=== PATIENT | male | born 1950 | race Caucasian/White ===

== ENCOUNTER 2017-08-09 05:50 | Day surgery (SDC) | payer MEDICARE, OTHER ==
[~2017-08-09] VITALS: Ht 182.9 cm; Wt 106.1 kg
[~2017-08-09 05:50] MED LIST: ALPRAZOLAM0.5 MG PO; BAYER CHEWABLE81 MG PO; CARVEDILOL25 MG PO; ENTRESTO 97 MG1 EACH PO; FEXOFENADINE H180 MG PO; FLOMAX0.4 MG PO; FLONASE ALLERG9.9 ML NAS; FUROSEMIDE20 MG PO; LIPITOR80 MG PO; PERCOCET 5-3251 EACH PO; PRAVACHOL20 MG PO; PYRIDIUM200 MG PO; SOTALOL80 M1 PO; SPIRONOLACTONE25 MG PO; WELCHOL625 MG PO; XARELTO20 MG PO
[2017-08-09] MEDS ORDERED: ALLEGRA ALLERG180 MG PO (06:11)
--- NOTE | 2017-08-09 08:19 | NUR ---
08/09/17 0819 Hermila Mejia 0810 PT ARRIVED DROWSY, RESP EVEN AND UNLABORED, ON 6L VIA MASK. PT HARD OF HEARING BUT REPONDING TO COMMANDS. ICE PLACED ON EXCISION SITE 0819 PT WAKES TO STIMULI AND DENIES PAIN. REORIENTED TO PACU. PT BACK TO SLEEP.
--- NOTE | 2017-08-09 12:27 | OR ---
[facility] [address], [place] [address] Signed DATE OF OPERATION: 08/09/2017 SURGEON: Dario Castro MD PREOPERATIVE DIAGNOSIS: Posterior cervical midline cyst. POSTOPERATIVE DIAGNOSIS: Posterior cervical midline cyst. PROCEDURE: Excision of cervical cyst. ESTIMATED BLOOD LOSS: None. INDICATIONS: John is a 66-year-old gentleman I have known in my office previously. He came to the office with an enlarging cyst in the posterior midline of his neck. He said it has been there for several weeks. They have tried everything to get rid of it without success including hot packs and putting pressure on the area. He said it is painful and it is up to a size about 2 cm. He is very convinced that it is giving headaches and bothering his right shoulder. Consequently, his primary care provider asked him to come see me as a general surgeon. In the office, I met with John and his . I explained to them that these are notoriously inflamed, indurated, and extremely difficult to remove. They often bleed significantly. He also needs aspirin and Xarelto, which would have to hold for the surgery. As a result, I explained to John and his we would do this over at the hospital under monitored anesthesia care with local anesthetic and we used our electrocautery to remove it in expeditious fashion. There is always a risk to the surgery including, but not limited to bleeding, infection, scarring, change in contour of the skin as well as recurrent cyst in the same or other locations. He had expressed understanding and wished to proceed. PROCEDURE NOTE: I met with John and his in our preop area. Thankfully, the cyst is actually decreased in size currently. John and I identified it easily and marked that appropriately. After this, John was taken to the operating room and placed in the left lateral decubitus position. He was given preoperative antibiotics along with subcutaneous heparin. SCDs were utilized. He was placed under monitored anesthesia care and he was then prepped and draped in the usual sterile fashion. After this, we Electronically Signed By: DARIO CASTRO MD 08/09/17 1227 PATIENT NAME: JOHN VARELA OPERATIVE REPORT DATE OF : 46 REPORT #: [id number] PHYSICIAN: DARIO CASTRO MD PCP: ALEK DAVE MD REPORT IS CONFIDENTIAL AND NOT TO BE RELEASED WITHOUT AUTHORIZATION [facility] [address], [place] [address] Signed injected local anesthetic in and around the lesion with the first pass of the needle. The tissue was so indurated and firm that it bent the 21-gauge needle. It took a few minutes and several pokes through the skin in order to get the area anesthetized with local anesthetic. After this, we used a transverse elliptical incision with a 15-blade knife and even then I had trouble cutting down through the skin. We switched over to cautery and even with the cutting mode, it took me a few minutes to get through that thick indurated tissue out on the edge where the subcutaneous adipose tissue was much softer. In this way, we were able to excise the entire cyst and cyst wall. It was passed off the field. The wound was then irrigated and suctioned out until clear. The dermis was reapproximated with interrupted 3-0 subcuticular Monocryl sutures. The skin edges were reapproximated with a running 6-0 fast absorbing plain gut suture. Dry gauze and tape were then applied. John was then rotated into the supine position on his hospital bed and taken into recovery room in stable condition. John will resume his chronic medications today including his aspirin and the Xarelto. Dario Castro MD ALB/MODL /[id number] cc: MD Dario Saldivar MD Copies: ALEK DAVE MD, ANDREW L MD ~ Electronically Signed By: DARIO CASTRO MD 08/09/17 1227 PATIENT NAME: JOHN VARELA OPERATIVE REPORT DATE OF : 46 REPORT #: [id number] PHYSICIAN: DARIO CASTRO MD PCP: ALEK DAVE MD REPORT IS CONFIDENTIAL AND NOT TO BE RELEASED WITHOUT AUTHORIZATION
--- NOTE | 2017-08-09 14:26 | NUR ---
PT ALERT, ORIENTED AND SUPPORTED BY HIS ULISES. BOTH EXPRESSED CONFIDENCE IN CARE THEY ARE RECEIVING AT [facility]. DR CASTRO IN, STAFF ALSO CAME TO TAKE PT TO SURGERY. PRAYED WITH ULISES, WILL FOLLOW NEEDED
== END 2017-08-09 09:11 | disposition home or self-care (01) ==
LOC: DS 05:50
PROVIDERS: Colon & Rectal Surgery
PROC: 0HB4XZZ Excision of Neck Skin, External Approach (ICD-10-PCS; principal; 2017-08-09 06:45)
DX: L72.0 Epidermal cyst (principal); I25.10 Atherosclerotic heart disease of native coronary artery without angina pectoris; E55.9 Vitamin D deficiency, unspecified; E66.9 Obesity, unspecified; G47.33 Obstructive sleep apnea (adult) (pediatric); E03.9 Hypothyroidism, unspecified; F41.0 Panic disorder [episodic paroxysmal anxiety]; Z95.810 Presence of automatic (implantable) cardiac defibrillator; Z79.01 Long term (current) use of anticoagulants; Z79.899 Other long term (current) drug therapy; Z79.82 Long term (current) use of aspirin; Z98.61 Coronary angioplasty status; Z68.31 Body mass index [BMI] 31.0-31.9, adult
CPT/HCPCS: 00300; 88304; J0690; J1644; J2250; J2704; J7120

== ENCOUNTER 2022-06-05 11:50 | Emergency (ER) | payer MEDICARE, OTHER ==
[~2022-06-05] VITALS: Ht 182.9 cm; Wt 106.1 kg
--- NOTE | ~2022-06-05 | EKG ---
[facility] [address] [facility] [place], [place] [address] Draft EK completed, results pending confirmation PATIENT NAME: NICHOLEJOHN Electrocardiogram DATE OF : 46 PHYSICIAN: PRELIMINARY REPORT #: [id number] REPORT IS CONFIDENTIAL AND NOT TO BE RELEASED WITHOUT AUTHORIZATION
[~2022-06-05 11:50] MED LIST changes: +ALLEGRA ALLERG180 MG PO
[2022-06-05] MEDS ORDERED: HYDROCODON-ACE1 EA10 PO (17:45)
== END 2022-06-05 18:11 | disposition home or self-care (01) ==
LOC: ED 11:50
DX: K80.20 Calculus of gallbladder without cholecystitis without obstruction (principal); I10 Essential (primary) hypertension; I25.2 Old myocardial infarction; I25.10 Atherosclerotic heart disease of native coronary artery without angina pectoris; Z95.0 Presence of cardiac pacemaker; Z79.01 Long term (current) use of anticoagulants; Z79.899 Other long term (current) drug therapy; Z79.82 Long term (current) use of aspirin
CPT/HCPCS: 36415; 74177; 76705; 80053; 83690; 84484; 85025; 93005; 93010; 96374; 96375; 99285-25; J1170; J2405; Q9967; U0003

== ENCOUNTER 2025-01-26 15:03 | Emergency (ER) | payer MEDICARE, OTHER ==
[~2025-01-26] VITALS: Ht 182.9 cm; Wt 93.0 kg
--- OUTSIDE RECORDS SUMMARY | ~2025-01-26 | XMS | Continuity of Care Document ---
Demographics + + + | Address | [address] | | | [place] [address] | + + + | Preferred Language | Unknown | + + + | Marital Status | Unknown | + + + | Mormonism Affiliation | Unknown | + + + | Race | or | + + + | Ethnic Group | Unknown | + + + Author + + + | Author | [facility] | + + + | Organization | [facility] | + + + | Address | [address] [facility] [address] [facility] | | | [place] [address] | + + + | Phone | | + + + Care Team Providers + + + + | Care Room Attendant Name | Role | Phone | + [...] + + | STAIN | 2024-12-22 | [place] | (missing) | (missing) | 12/23/2024 | | RESULT.XXX.N | 05:07 | [facility] | | | 02:17 AM BY | | OM | | Medical | | | [facility] | | | | Center | | | | + + + + + + + | Tobramycin | 2024-12-22 | [facility] | (missing) | (missing) | 12/23/2024 | | | 05:07 | [facility] | | | 02:17 AM BY | | | | Medical | | | [facility] | | | | Center | | | | + + + + + + + | STAIN | 2024-12-22 | [facility] | (missing) | (missing) | Critical | | RESULT.XXX.N | 05:07 | [facility] | | | result was | | OM | | Medical | | | given to: | | | | Center | | | | + + + + + + + | Tobramycin | 2024-12-22 | [facility] | (missing) | (missing) | Critical | | | 05:07 | [facility] | | | result was | | | | Medical | | | given to: | | | | Center | | | | + + + + + + + | STAIN | 2024-12-22 | [facility] | (missing) | (missing) | Date/Time : | | RESULT.XXX.N | 05:07 | [facility] | | | | | OM | | Medical | | | | | | | Center | | | | + + + + + + + | Tobramycin | 2024-12-22 | [place] | (missing) | (missing) | Date/Time : | | | 05:07 | [facility] | | | | | | | Medical | | | | | | | Center | | | | + + + + + + + | STAIN | 2024-12-22 | [facility] | (missing) | (missing) | Result was | | RESULT.XXX.N | 05:07 | [facility] | | | read back. | | OM | | Medical | | | | | | | Center | | | | + + + + + + + | Tobramycin | 2024-12-22 | [facility] | (missing) | (missing) | Result was | | | 05:07 | [facility] | | | read back. | | | | Medical | | | | | | | Center | | | | + + + + + + + | STAIN | 2024-12-22 | [facility] | (missing) | (missing) | MYRNA B. | | RESULT.XXX.N | 05:07 | [facility] | | | at: [facility] | | OM | | Medical | | | | | | | Center | | | | + + + + + + + | Tobramycin | 2024-12-22 | [facility] | (missing) | (missing) | MYRNA B. | | | 05:07 | [facility] | | | at: [facility] | | | | Medical | | | | | | | Center | | | | + + + + + + + | Tobramycin | 2024-12-22 | [place] | <=1 | (missing) | (missing) | | | 05:07 | [facility] | | | | | | | Medical | | | | | | | Center | | | | + + + + + + + | | 2024-12-22 | [facility] | 0.0 | per 100 | (missing) | | NRBC.BLD.QN. | 05:07 | [facility] | | [facility] | | | AUTO (K/UL) | | Medical | | | | | | | Center | | | | + + + + + + + | | 2024-12-22 | [facility] | 0.00 | k/ul | (missing) | | NRBC.BLD.QN. | 05:07 | [facility] | | | | | AUTO (K/UL) | | Medical | | | | | | | Center | | | | + + + + + + + | | 2024-12-22 | [facility] | 0.01 | k/ul | (missing) | | NRBC.BLD.QN. | 05:07 | [facility] | | | | | AUTO (K/UL) | | Medical | | | | | | | Center | | | | + + + + + + + | | 2024-12-22 | [facility] | 0.03 | k/ul | (missing) | | NRBC.BLD.QN. | 05:07 | [facility] | | | | | AUTO (K/UL) | | Medical | | | | | | | Center | | | | + + + + + + + | | 2024-12-22 | [facility] | 0.07 | k/ul | (missing) | | NRBC.BLD.QN. | 05:07 | [facility] | | | | | AUTO (K/UL) | | Medical | | | | | | | Center | | | | + + + + + + + | | 2024-12-22 | [facility] | 0.09 | k/ul | (missing) | | NRBC.BLD.QN. | 05:07 | [facility] | | | | | AUTO (K/UL) | | Medical | | | | | | | Center | | | | + + + + + + + | | 2024-12-22 | [place] | 0.1 | % | (missing) | | NRBC.BLD.QN. | 05:07 | [facility] | | | | | AUTO (K/UL) | | Medical | | | | | | | Center | | | | + + + + + + + | | 2024-12-22 | [facility] | 0.16 | k/ul | (missing) | | NRBC.BLD.QN. | 05:07 | [facility] | | | | | AUTO (K/UL) | | Medical | | | | | | | Center | | | | + + + + + + + | Tobramycin | 2024-12-22 | [facility] | 0.25 | (missing) | (missing) | | | 05:07 | [facility] | | | | | | | Medical | | | | | | | Center | | | | + + + + + + + | | 2024-12-22 | [facility] | 0.3 | % | (missing) | | NRBC.BLD.QN. | 05:07 | [facility] | | | | | AUTO (K/UL) | | Medical | | | | | | | Center | | | | + + + + + + + | | 2024-12-22 | [place] | 0.6 | % | (missing) | | NRBC.BLD.QN. | 05:07 | [facility] | | | | | AUTO (K/UL) | | Medical | | | | | | | Center | | | | + + + + + + + | | 2024-12-22 | [facility] | 0.8 | % | (missing) | | NRBC.BLD.QN. | 05:07 | [facility] | | | | | AUTO (K/UL) | | Medical | | | | | | | Center | | | | + + + + + + + | Tobramycin | 2024-12-22 | [facility] | 1.0 | (missing) | (missing) | | | 05:07 | [facility] | | | | | | | Medical | | | | | | | Center | | | | + + + + + + + | EGFR | 2024-12-22 | [facility] | 1.04 | mg/dl | (missing) | | ML/MIN/1.73 | 05:07 | [facility] | | | | | SQ | | Medical | | | | | M.PREDICTED | | Center | | | | + + + + + + + | EGFR | 2024-12-22 | [facility] | 1.3 | (missing) | (missing) | | ML/MIN/1.73 | 05:07 | [facility] | | | | | SQ | | Medical | | | | | M.PREDICTED | | Center | | | | + + + + + + + | | 2024-12-22 | [facility] | 1.4 | % | (missing) | | NRBC.BLD.QN. | 05:07 | [facility] | | | | | AUTO (K/UL) | | Medical | | | | | | | Center | | | | + + + + + + + | EGFR | 2024-12-22 | [facility] | 1.8 | mg/dl | (missing) | | ML/MIN/1.73 | 05:07 | [facility] | | | | | SQ | | Medical | | | | | M.PREDICTED | | Center | | | | + + + + + + + | EGFR | 2024-12-22 | [place] | 102 | mmol/l | (missing) | | ML/MIN/1.73 | 05:07 | [facility] | | | | | SQ | | Medical | | | | | M.PREDICTED | | Center | | | | + + + + + + + | | 2024-12-22 | [facility] | 11.02 | k/ul | (missing) | | NRBC.BLD.QN. | 05:07 | [facility] | | | | | AUTO (K/UL) | | Medical | | | | | | | Center | | | | + + + + + + + | | 2024-12-22 | [facility] | 11.38 | k/ul | (missing) | | NRBC.BLD.QN. | 05:07 | [facility] | | | | | AUTO (K/UL) | | Medical | | | | | | | Center | | | | + + + + + + + | EGFR | 2024-12-22 | [place] | 12.5 | (missing) | (missing) | | ML/MIN/1 | 05:07 | [facility] | | | | | SQ | | Medical | | | | | M.PREDICTED | | Center | | | | + + + + + + + | | 2024-12-22 | [place] | 12.8 | g/dl | (missing) | | NRBC.BLD.QN. | 05:07 | [facility] | | | | | AUTO (K/UL) | | Medical | | | | | | | Center | | | | + + + + + + + | EGFR | 2024-12-22 | [facility] | 121 | mg/dl | Diagnostic | | ML/MIN/1.73 | 05:07 | [facility] | | | Categories | | SQ [...] + + | EGFR | 2024-12-22 | [place] | 13 | mg/dl | (missing) | | ML/MIN/1.73 | 05:07 | [facility] | | | | | SQ | | Medical | | | | | M.PREDICTED | | Center | | | | + + + + + + + | EGFR | 2024-12-22 | [place] | 13 | mmol/l | (missing) | | ML/MIN/173 | 05:07 | [facility] | | | | | SQ | | Medical | | | | | M.PREDICTED | | Center | | | | + + + + + + + | | 2024-12-22 | [place] | 13.2 | % | (missing) | | NRBC.BLD.QN. | 05:07 | [facility] | | | | | AUTO (K/UL) | | Medical | | | | | | | Center | | | | + + + + + + + | EGFR | 2024-12-22 | [place] | 137 | mmol/l | (missing) | | ML/MIN/1.73 | 05:07 | [facility] | | | | | SQ | | Medical | | | | | M.PREDICTED | | Center | | | | + + + + + + + | EGFR | 2024-12-22 | [facility] | 149 | u/l | (missing) | | ML/MIN/1.73 | 05:07 | [facility] | | | | | SQ | | Medical | | | | | M.PREDICTED | | Center | | | | + + + + + + + | Tobramycin | 2024-12-22 | [facility] | 16 | (missing) | (missing) | | | 05:07 | [facility] | | | | | | | Medical | | | | | | | Center | | | | + + + + + + + | Tobramycin | 2024-12-22 | [place] | 2.0 | (missing) | (missing) | | | 05:07 | [facility] | | | | | | | Medical | | | | | | | Center | | | | + + + + + + + | EGFR | 2024-12-22 | [facility] | 22 | mmol/l | (missing) | | ML/MIN/1.73 | 05:07 | [facility] | | | | | SQ | | Medical | | | | | M.PREDICTED | | Center | | | | + + + + + + + | EGFR | 2024-12-22 | [place] | 23 | u/l | (missing) | | ML/MIN/1.73 | 05:07 | [facility] | | | | | SQ | | Medical | | | | | M.PREDICTED | | Center | | | | + + + + + + + | | 2024-12-22 | [place] | 241 | k/ul | (missing) | | NRBC.BLD.QN. | 05:07 | [facility] | | | | | AUTO (K/UL) | | Medical | | | | | | | Center | | | | + + + + + + + | EGFR | 2024-12-22 | [place] | 25 | u/l | (missing) | | ML/MIN/1.73 | 05:07 | [facility] | | | | | SQ | | Medical | | | | | M.PREDICTED | | Center | | | | + + + + + + + | | 2024-12-22 | [place] | 29.1 | pg | (missing) | | NRBC.BLD.QN. | 05:07 | [facility] | | | | | AUTO (K/UL) | | Medical | | | | | | | Center | | | | + + + + + + + | | 2024-12-22 | [place] | 3.0 | mmol/l | (missing) | | LACTATE.BLD. | 05:07 | [facility] | | | | | QN | | Medical | | | | | | | Center | | | | + + + + + + + | EGFR | 2024-12-22 | [place] | 3.0 | mmol/l | (missing) | | ML/MIN/1.73 | 05:07 | [facility] | | | | | SQ | | Medical | | | | | M.PREDICTED | | Center | | | | + + + + + + + | EGFR | 2024-12-22 | [place] | 3.1 | g/dl | (missing) | | ML/MIN/1.73 | 05:07 | [facility] | | | | | SQ | | Medical | | | | | M.PREDICTED | | Center | | | | + + + + + + + | EGFR | 2024-12-22 | [place] | 3.9 | g/dl | (missing) | | ML/MIN/173 | 05:07 | [facility] | | | | | SQ | | Medical | | | | | M.PREDICTED | | Center | | | | + + + + + + + | | 2024-12-22 | [place] | 33.3 | g/dl | (missing) | | NRBC.BLD.QN. | 05:07 | [facility] | | | | | AUTO (K/UL) | | Medical | | | | | | | Center | | | | + + + + + + + | STAIN | 2024-12-22 | [place] | | (missing) | Pseudomonas | | RESULT.XXX.N | 05:07 | [facility] | [address] | | aeruginosa | | OM | | Medical | | | Pseudomonas | | | | Center | [facility] | | aeruginosa | + + + + + + + | Tobramycin | 2024-12-22 | [place] | | (missing) | Pseudomonas | | | 05:07 | [facility] | [address] | | aeruginosa | | | | Medical | | | Pseudomonas | | | | Center | [facility] | | aeruginosa | + + + + + + + | STAIN | 2024-12-22 | [place] | | (missing) | Pseudomonas | | RESULT.XXX.N | 05:07 | [facility] | [address] | | aeruginosaPr | | [...] + + | STAIN | 2024-12-22 | [place] | | (missing) | Pseudomonas | | RESULT.XXX.N | 05:07 | [facility] | [address] | | aeruginosaRe | | OM | | Medical | | | francisca to | | | | Center | [facility] | | accession # | | | | | | | [id number] | | | | | | | [...] + + | STAIN | 2024-12-22 | [place] | | (missing) | Pseudomonas | | RESULT.XXX.N | 05:07 | [facility] | [address] | | | | OM | | Medical | | | aeruginosaSu | | | | Center | [facility] | | sceptibility | | | | | | | to follow. | | | | | | | Pseudomonas | | | | | | | aeruginosa | + + + + + + + | Tobramycin | 2024-12-22 | [place] | | (missing) | Pseudomonas | | | 05:07 | [facility] | [address] | | | | | | Medical | | | aeruginosaSu | | | | Center | [facility] | | sceptibility | | | | | | | to follow. | | | | | | | Pseudomonas | | | | | | | aeruginosa | + + + + + + + | | 2024-12-22 | [place] | 38.4 | % | (missing) | | YOSHI.DEWAYNE.QN. | 05:07 | [facility] | | | | | AUTO (K/UL) | | Medical | | | | | | | Center | | | | + + + + + + + | | 2024-12-22 | [place] | 4.40 | m/ul | (missing) | | NRBC.BLD.QN. | 05:07 | [facility] | | | | | AUTO (K/UL) | | Medical | | | | | | | Center | | | | + + + + + + + | | 2024-12-22 | [place] | 41.5 | fl | (missing) | | NRBC.BLD.QN. | 05:07 | [facility] | | | | | AUTO (K/UL) | | Medical | | | | | | | Center | | | | + + + + + + + | EGFR | 2024-12-22 | [place] | 7.0 | g/dl | (missing) | | ML/MIN/1.73 | 05:07 | [facility] | | | | | SQ | | Medical | | | | | M.PREDICTED | | Center | | | | + + + + + + + | EGFR | 2024-12-22 | [place] | 74 | | GFR value | | ML/MIN/1.73 | 05:07 | [facility] | | ml/min/1.73m | was | | [...] | | | | | | | [place] | | | | | | | [...] + + + | | 2024-12-22 | [place] | 87.3 | fl | (missing) | | NRBC.BLD.QN. | 05:07 | [facility] | | | | | AUTO (K/UL) | | Medical | | | | | | | Center | | | | + + + + + + + | STAIN | 2024-12-22 | [place] | 881GRAM | (missing) | Gram | | RESULT.XXX.N | 05:07 | [facility] | NEGATIVE | | negative | | OM | | Medical | BACILLI | | bacilli Gram | | | | Center | | | Negative | | | | | | | Rods | + + + + + + + | | 2024-12-22 | [place] | 9.5 | fl | (missing) | | NRBC.BLD.QN. | 05:07 | [facility] | | | | | AUTO (K/UL) | | Medical | | | | | | | Center | | | | + + + + + + + | EGFR | 2024-12-22 | [place] | 9.5 | mg/dl | (missing) | | ML/MIN/1.73 | 05:07 | [facility] | | | | | SQ | | Medical | | | | | M.PREDICTED | | Center | | | | + + + + + + + | | 2024-12-22 | [place] | 96.8 | % | (missing) | | NRBC.BLD.QN. | 05:07 | [facility] | | | | | AUTO (K/UL) | | Medical | | | | | | | Center | | | | + + + + + + + | STAIN | 2024-12-22 | [place] | Gram | (missing) | (missing) | | RESULT.XXX.N | 05:07 | [facility] | negative | | | | OM | | Medical | rods | | | | | | Center | | | | + + + + + + + | Tobramycin | 2024-12-22 | [place] | Gram | (missing) | (missing) | | | 05:07 | [facility] | negative | | | | | | Medical | rods | | | | | | Center | | | | + + + + + + + + + | Result panel 2 | + + + + + + + + + | MUCUS.URINE | 2024-12-22 | [place] | >100 | /hpf | (missing) | | [facility] | 05:08 | [facility] | | | | | (LPF) | | Medical | | | | | | | Center | | | | + + + + + + + | MUCUS.URINE | 2024-12-22 | [place] | >1000 mg/dL | (missing) | (missing) | | [facility] | 05:08 | [facility] | | | | | (LPF) | | Medical | | | | | | | Center | | | | + + + + + + + | MUCUS.URINE | 2024-12-22 | [place] | 1.020 | (missing) | (missing) | | [facility] | 05:08 | [facility] | | | | | (LPF) | | Medical | | | | | | | Center | | | | + + + + + + + | MUCUS.URINE | 2024-12-22 | [place] | 2 | (missing) | (missing) | | [facility] | 05:08 | [facility] | | | | | (LPF) | | Medical | | | | | | | Center | | | | + + + + + + + | MUCUS.URINE | 2024-12-22 | [place] | 20 mg/dL | (missing) | (missing) | | [facility] | 05:08 | [facility] | | | | | (LPF) | | Medical | | | | | | | Center | | | | + + + + + + + | MUCUS.URINE | 2024-12-22 | [place] | 5.5 | (missing) | (missing) | | [facility] | 05:08 | [facility] | | | | | (LPF) | | Medical | | | | | | | Center | | | | + + + + + + + | MUCUS.URINE | 2024-12-22 | [place] | 51-100 | /hpf | (missing) | | [facility] | 05:08 | [facility] | | | | | (LP[facility]) | | Medical | | | | | | | Center | | | | + + + + + + + | MUCUS.URINE | 2024-12-22 | [place] | Few | /hpf | (missing) | | [facility] | 05:08 | [facility] | | | | | (LPF) | | Medical | | | | | | | Center | | | | + + + + + + + | MUCUS.URINE | 2024-12-22 | [place] | Large | (missing) | (missing) | | [facility] | 05:08 | [facility] | | | | | (LPF) | | Medical | | | | | | | Center | | | | + + + + + + + | MUCUS.URINE | 2024-12-22 | [place] | Negative | (missing) | (missing) | | [facility] | 05:08 | [facility] | | | | | (LPF) | | Medical | | | | | | | Center | | | | + + + + + + + | MUCUS.URINE | 2024-12-22 | [place] | Normal | (missing) | (missing) | | [facility] | 05:08 | [facility] | | | | | (LPF) | | Medical | | | | | | | Center | | | | + + + + + + + | SARS | 2024-12-22 | [place] | Not | (missing) | (missing) | | CORONAVIRUS | 05:08 | [facility] | Detected | | | | 2 | | Medical | | | | | RNA.RESP.ORD | | Center | | | | | | | | | | | + + + + + + + | SARS | 2024-12-22 | [place] | Not | (missing) | SARS-CoV-2, | | CORONAVIRUS | 05:08 | [facility] | Detected | | EL[facility] | | [...] | | | | | | | [email or web address] | | | | | | | [...] | | | | | | | [email or web address] | | | | | | | [email or web address] | | | | | | | testing | + + + + + + + | MUCUS.URINE | 2024-12-22 | [place] | Rare | /lpf | (missing) | | [facility] | 05:08 | [facility] | | | | | (LPF) | | Medical | | | | | | | Center | | | | + + + + + + + | MUCUS.URINE | 2024-12-22 | [place] | Turbid | (missing) | (missing) | | [facility] | 05:08 | [facility] | | | | | (LPF) | | Medical | | | | | | | Center | | | | + + + + + + + | MUCUS.URINE | 2024-12-22 | [place] | Yellow | (missing) | (missing) | | [facility] | 05:08 | [facility] | | | | | (LPF) | | Medical | | | | | | | Center | | | | + + + + + + + + + | Result panel 3 | + + + + + +-------+---------+ + | POC | 2024-12-22 | [place] | 159 | mg/dl | (missing) | | GLUCOSE.BLD. | 05:09 | [facility] | | | | | QN (MG/DL) | | Medical | | | | | | | Center | | | | + + + +-------+---------+ + + + | Result panel 4 | + + + + + + + + + | Tobramycin | 2024-12-22 | [place] | <=1 | (missing) | (missing) | | | 05:43 | [facility] | | | | | | | Medical | | | | | | | Center | | | | + + + + + + + | Tobramycin | 2024-12-22 | [place] | 0.25 | (missing) | (missing) | | | 05:43 | [facility] | | | | | | | Medical | | | | | | | Center | | | | + + + + + + + | Tobramycin | 2024-12-22 | [place] | 1.0 | (missing) | (missing) | | | 05:43 | [facility] | | | | | | | Medical | | | | | | | Center | | | | + + + + + + + | Tobramycin | 2024-12-22 | [place] | 2.0 | (missing) | (missing) | | | 05:43 | [facility] | | | | | | | Medical | | | | | | | Center | | | | + + + + + + + | CULTURE | 2024-12-22 | [place] | | (missing) | >=100,000 | | | 05:43 | [facility] | [address] | | CFU/ml | | | | Medical | | | Pseudomonas | | | | Center | [facility] | | aeruginosa | | | | | | | Pseudomonas | | | | | | | aeruginosa | + + + + + + + | Tobramycin | 2024-12-22 | [place] | | (missing) | >=100,000 | | | 05:43 | [facility] | [address] | | CFU/ml | | | | Medical | | | Pseudomonas | | | | Center | [facility] | | aeruginosa | | | | | | | Pseudomonas | | | | | | | aeruginosa | + + + + + + + | Tobramycin | 2024-12-22 | [place] | 4.0 | (missing) | (missing) | | | 05:43 | [facility] | | | | | | | Medical | | | | | | | Center | | | | + + + + + + + | Tobramycin | 2024-12-22 | [place] | 8 | (missing) | (missing) | | | 05:43 | [facility] | | | | | | | Medical | | | | | | | Center | | | | + + + + + + + + + | Result panel 5 | + + + + + +-------+---------+ + | | 2024-12-22 | [place] | 1.4 | mg/dl | (missing) | | MAGNESIUM.SE | 05:57 | [facility] | | | | | R/PLAS.QN | | Medical | | | | | (MG/DL) | | Center | | | | + + + +-------+---------+ + + + | Result panel 6 | + + + + + +-------+ + + | | 2024-12-22 | [place] | 3.1 | mmol/l | (missing) | | LACTATE.BLD. | 07:09 | [facility] | | | | | QN | | Medical | | | | | | | Center | | | | + + + +-------+ + + + + | Result panel 7 | + + + + + +--------+---------+ + | | 2024-12-22 | [place] | 6.81 | ng/ml | Clinical | | PROCALCITONI | 07:35 | [facility] | | | Procalcitoni | | N [...] +-------+---------+ + | POC | 2024-12-22 | [place] | 120 | mg/dl | Glu2: | | GLUCOSE.BLD. | 08:12 | [facility] | | | Follow Order | | QN (MG/DL) | | Medical | | | Set | | | | Center | | | | + + + +-------+---------+ + + + | Result panel 9 | + + + + + +-------+ + + | | 2024-12-22 | [place] | 2.4 | mmol/l | (missing) | | LACTATE.BLD. | 09:19 | [facility] | | | | | QN | | Medical | | | | | | | Center | | | | + + + +-------+ + + + + | Result panel 10 | + + + + + +-------+ + + | POTASSIUM | 2024-12-22 | [place] | 3.0 | mmol/l | (missing) | | | 12:00 | [facility] | | | | | | | Medical | | | | | | | Center | | | | + + + +-------+ + + + + | Result panel 11 | + + + + + +-------+ + + | POTASSIUM | 2024-12-22 | [place] | 4.8 | mmol/l | Clinical | | | 17:58:53 | [facility] | | | indication: | | | | Medical | | | see | | | | Center | | | Potassium | | | | | | | Replacement | | | | | | | Protocol | + + + +-------+ + + + + | Result panel 12 | + + + + + +-------+---------+ + | | 2024-12-22 | [place] | 1.9 | mg/dl | Clinical | | MAGNESIUM.SE | 17:59:06 | [facility] | | | indication: | | R/PLAS.QN [...] +---------+ + + | | 2024-12-23 | [facility] | 0.0 | per 100 | (missing) | | NRBC.BLD.QN. | 04:00 | [facility] | | [facility] | | | AUTO (K/UL) | | Medical | | | | | | | Center | | | | + + + +---------+ + + | | 2024-12-23 | [facility] | 0.00 | k/ul | (missing) | | NRBC.BLD.QN. | 04:00 | [facility] | | | | | AUTO (K/UL) | | Medical | | | | | | | Center | | | | + + + +---------+ + + | | 2024-12-23 | [facility] | 0.01 | k/ul | (missing) | | NRBC.BLD.QN. | 04:00 | [facility] | | | | | AUTO (K/UL) | | Medical | | | | | | | Center | | | | + + + +---------+ + + | | 2024-12-23 | [facility] | 0.07 | k/ul | (missing) | | NRBC.BLD.QN. | 04:00 | [facility] | | | | | AUTO (K/UL) | | Medical | | | | | | | Center | | | | + + + +---------+ + + | | 2024-12-23 | [facility] | 0.1 | % | (missing) | | NRBC.BLD.QN. | 04:00 | [facility] | | | | | AUTO (K/UL) | | Medical | | | | | | | Center | | | | + + + +---------+ + + | | 2024-12-23 | [facility] | 0.12 | k/ul | (missing) | | NRBC.BLD.QN. | 04:00 | [facility] | | | | | AUTO (K/UL) | | Medical | | | | | | | Center | | | | + + + +---------+ + + | | 2024-12-23 | [facility] | 0.4 | % | (missing) | | NRBC.BLD.QN. | 04:00 | [facility] | | | | | AUTO (K/UL) | | Medical | | | | | | | Center | | | | + + + +---------+ + + | | 2024-12-23 | [facility] | 0.54 | k/ul | (missing) | | NRBC.BLD.QN. | 04:00 | [facility] | | | | | AUTO (K/UL) | | Medical | | | | | | | Center | | | | + + + +---------+ + + | EGFR | 2024-12-23 | [facility] | 0.61 | mg/dl | (missing) | | ML/MIN/1.73 | 04:00 | [facility] | | | | | SQ | | Medical | | | | | M.PREDICTED | | Center | | | | + + + +---------+ + + | | 2024-12-23 | [facility] | 0.7 | % | (missing) | | NRBC.BLD.QN. | 04:00 | [facility] | | | | | AUTO (K/UL) | | Medical | | | | | | | Center | | | | + + + +---------+ + + | | 2024-12-23 | [facility] | 0.76 | k/ul | (missing) | | NRBC.BLD.QN. | 04:00 | [facility] | | | | | AUTO (K/UL) | | Medical | | | | | | | Center | | | | + + + +---------+ + + | EGFR | 2024-12-23 | [facility] | 1.0 | mg/dl | (missing) | | ML/MIN/1.73 | 04:00 | [facility] | | | | | SQ | | Medical | | | | | M.PREDICTED | | Center | | | | + + + +---------+ + + | EGFR | 2024-12-23 | [facility] | 1.1 | (missing) | (missing) | | ML/MIN/1.73 | 04:00 | [facility] | | | | | SQ | | Medical | | | | | M.PREDICTED | | Center | | | | + + + +---------+ + + | | 2024-12-23 | [facility] | 1.5 | mmol/l | (missing) | | LACTATE.BLD. | 04:00 | [facility] | | | | | QN | | Medical | | | | | | | Center | | | | + + + +---------+ + + | | 2024-12-23 | [facility] | 1.8 | mg/dl | (missing) | | MAGNESIUM.SE | 04:00 | [facility] | | | | | R/PLAS.QN | | Medical | | | | | (MG/DL) | | Center | | | | + + + +---------+ + + | EGFR | 2024-12-23 | [facility] | 10 | mmol/l | (missing) | | ML/MIN/1.73 | 04:00 | [facility] | | | | | SQ | | Medical | | | | | M.PREDICTED | | Center | | | | + + + +---------+ + + | | 2024-12-23 | [facility] | 10.7 | g/dl | (missing) | | MPV.BLD.QN.A | 04:00 | [facility] | | | | | [facility] | | Medical | | | | | | | Center | | | | + + + +---------+ + + | | 2024-12-23 | [facility] | 10.7 | g/dl | (missing) | | NRBC.BLD.QN. | 04:00 | [facility] | | | | | AUTO (K/UL) | | Medical | | | | | | | Center | | | | + + + +---------+ + + | EGFR | 2024-12-23 | [facility] | 100 | | GFR value | | ML/MIN/1.73 | 04:00 | [facility] | | ml/min/1.73m | was | | [...] | | | | | | | [place] | | | | | | | [...] + + | EGFR | 2024-12-23 | [facility] | 105 | mmol/l | (missing) | | ML/MIN/1.73 | 04:00 | [facility] | | | | | SQ | | Medical | | | | | M.PREDICTED | | Center | | | | + + + +---------+ + + | EGFR | 2024-12-23 | [facility] | 106 | u/l | (missing) | | ML/MIN/1.73 | 04:00 | [facility] | | | | | SQ | | Medical | | | | | M.PREDICTED | | Center | | | | + + + +---------+ + + | EGFR | 2024-12-23 | [facility] | 128 | mg/dl | Diagnostic | | ML/MIN/1.73 | 04:00 | [facility] | | | Categories | | SQ [...] + + | EGFR | 2024-12-23 | [facility] | 13 | mg/dl | (missing) | | ML/MIN/1.73 | 04:00 | [facility] | | | | | SQ | | Medical | | | | | M.PREDICTED | | Center | | | | + + + +---------+ + + | | 2024-12-23 | [facility] | 13.5 | % | (missing) | | MPV.BLD.QN.A | 04:00 | [facility] | | | | | [facility] | | Medical | | | | | | | Center | | | | + + + +---------+ + + | | 2024-12-23 | [facility] | 13.5 | % | (missing) | | NRBC.BLD.QN. | 04:00 | [facility] | | | | | AUTO (K/UL) | | Medical | | | | | | | Center | | | | + + + +---------+ + + | EGFR | 2024-12-23 | [facility] | 137 | mmol/l | (missing) | | ML/MIN/1.73 | 04:00 | [facility] | | | | | SQ | | Medical | | | | | M.PREDICTED | | Center | | | | + + + +---------+ + + | | 2024-12-23 | [facility] | 16.63 | k/ul | (missing) | | NRBC.BLD.QN. | 04:00 | [facility] | | | | | AUTO (K/UL) | | Medical | | | | | | | Center | | | | + + + +---------+ + + | | 2024-12-23 | [facility] | 18.13 | k/ul | (missing) | | MPV.BLD.QN.A | 04:00 | [facility] | | | | | [facility] | | Medical | | | | | | | Center | | | | + + + +---------+ + + | | 2024-12-23 | [facility] | 18.13 | k/ul | (missing) | | NRBC.BLD.QN. | 04:00 | [facility] | | | | | AUTO (K/UL) | | Medical | | | | | | | Center | | | | + + + +---------+ + + | | 2024-12-23 | [facility] | 2.6 | mg/dl | (missing) | | PHOSPHORUS.S | 04:00 | [facility] | | | | | ER/PLAS.QN | | Medical | | | | | (MG/DL) | | Center | | | | + + + +---------+ + + | EGFR | 2024-12-23 | [place] | 2.7 | g/dl | (missing) | | ML/MIN/1.73 | 04:00 | [facility] | | | | | [facility] | | Medical | | | | | M.PREDICTED | | Center | | | | + + + +---------+ + + | EGFR | 2024-12-23 | [place] | 21 | u/l | (missing) | | ML/MIN/1.73 | 04:00 | [facility] | | | | | [facility] | | Medical | | | | | M.PREDICTED | | Center | | | | + + + +---------+ + + | EGFR | 2024-12-23 | [place] | 21.3 | (missing) | (missing) | | ML/MIN/1.73 | 04:00 | [facility] | | | | | [facility] | | Medical | | | | | M.PREDICTED | | Center | | | | + + + +---------+ + + | EGFR | 2024-12-23 | [place] | 22 | mmol/l | (missing) | | ML/MIN/1.73 | 04:00 | [facility] | | | | | [facility] | | Medical | | | | | M.PREDICTED | | Center | | | | + + + +---------+ + + | | 2024-12-23 | [place] | 220 | k/ul | (missing) | | MPV.BLD.QN.A | 04:00 | [facility] | | | | | [facility] [place] | | [facility] | | | | | | | Center | | | | + + + +---------+ + + | | 2024-12-23 | [place] | 220 | k/ul | (missing) | | NRBC.BLD.QN. | 04:00 | [facility] | | | | | AUTO (K/UL) | | Medical | | | | | | | Center | | | | + + + +---------+ + + | EGFR | 2024-12-23 | [place] | 23 | u/l | (missing) | | ML/MIN/1.73 | 04:00 | [facility] | | | | | [facility] | | Medical | | | | | M.PREDICTED | | Center | | | | + + + +---------+ + + | | 2024-12-23 | [place] | 29.2 | pg | (missing) | | MPV.BLD.QN.A | 04:00 | [facility] | | | | | [facility] [place] | | [facility] | | | | | | | Center | | | | + + + +---------+ + + | | 2024-12-23 | [place] | 29.2 | pg | (missing) | | NRBC.BLD.QN. | 04:00 | [facility] | | | | | AUTO (K/UL) | | Medical | | | | | | | Center | | | | + + + +---------+ + + | | 2024-12-23 | [place] | 3.0 | % | (missing) | | NRBC.BLD.QN. | 04:00 | [facility] | | | | | AUTO (K/UL) | | Medical | | | | | | | Center | | | | + + + +---------+ + + | EGFR | 2024-12-23 | [place] | 3.0 | g/dl | (missing) | | ML/MIN/1.73 | 04:00 | [facility] | | | | | [facility] | | Medical | | | | | M.PREDICTED | | Center | | | | + + + +---------+ + + | | 2024-12-23 | [place] | 3.67 | m/ul | (missing) | | MPV.BLD.QN.A | 04:00 | [facility] | | | | | [facility] [place] | | [facility] | | | | | | | Center | | | | + + + +---------+ + + | | 2024-12-23 | [place] | 3.67 | m/ul | (missing) | | NRBC.BLD.QN. | 04:00 | [facility] | | | | | AUTO (K/UL) | | Medical | | | | | | | Center | | | | + + + +---------+ + + | EGFR | 2024-12-23 | [place] | 3.7 | mmol/l | (missing) | | ML/MIN/1.73 | 04:00 | [facility] | | | | | [facility] | | Medical | | | | | M.PREDICTED | | Center | | | | + + + +---------+ + + | | 2024-12-23 | [place] | 32.4 | % | (missing) | | MPV.BLD.QN.A | 04:00 | [facility] | | | | | [facility] [place] | | [facility] | | | | | | | Center | | | | + + + +---------+ + + | | 2024-12-23 | [place] | 32.4 | % | (missing) | | NRBC.BLD.QN. | 04:00 | [facility] | | | | | AUTO (K/UL) | | Medical | | | | | | | Center | | | | + + + +---------+ + + | | 2024-12-23 | [place] | 33.0 | g/dl | (missing) | | MPV.BLD.QN.A | 04:00 | [facility] | | | | | [facility] [place] | | [facility] | | | | | | | Center | | | | + + + +---------+ + + | | 2024-12-23 | [place] | 33.0 | g/dl | (missing) | | NRBC.BLD.QN. | 04:00 | [facility] | | | | | AUTO (K/UL) | | Medical | | | | | | | Center | | | | + + + +---------+ + + | | 2024-12-23 | [place] | 4.2 | % | (missing) | | NRBC.BLD.QN. | 04:00 | [facility] | | | | | AUTO (K/UL) | | Medical | | | | | | | Center | | | | + + + +---------+ + + | | 2024-12-23 | [place] | 43.7 | fl | (missing) | | MPV.BLD.QN.A | 04:00 | [facility] | | | | | [facility] [place] | | [facility] | | | | | | | Center | | | | + + + +---------+ + + | | 2024-12-23 | [place] | 43.7 | fl | (missing) | | NRBC.BLD.QN. | 04:00 | [facility] | | | | | AUTO (K/UL) | | Medical | | | | | | | Center | | | | + + + +---------+ + + | EGFR | 2024-12-23 | [place] | 5.7 | g/dl | (missing) | | ML/MIN/1.73 | 04:00 | [facility] | | | | | [facility] | | Medical | | | | | M.PREDICTED | | Center | | | | + + + +---------+ + + | EGFR | 2024-12-23 | [place] | 8.3 | mg/dl | (missing) | | ML/MIN/1.73 | 04:00 | [facility] | | | | | [facility] | | Medical | | | | | M.PREDICTED | | Center | | | | + + + +---------+ + + | | 2024-12-23 | [place] | 88.3 | fl | (missing) | | MPV.BLD.QN.A | 04:00 | [facility] | | | | | [facility] [place] | | [facility] | | | | | | | Center | | | | + + + +---------+ + + | | 2024-12-23 | [place] | 88.3 | fl | (missing) | | NRBC.BLD.QN. | 04:00 | [facility] | | | | | AUTO (K/UL) | | Medical | | | | | | | Center | | | | + + + +---------+ + + | | 2024-12-23 | [place] | 9.3 | fl | (missing) | | MPV.BLD.QN.A | 04:00 | [facility] | | | | | [facility] [place] | | [facility] | | | | | | | Center | | | | + + + +---------+ + + | | 2024-12-23 | [place] | 9.3 | fl | (missing) | | NRBC.BLD.QN. | 04:00 | [facility] | | | | | AUTO (K/UL) | | Medical | | | | | | | Center | | | | + + + +---------+ + + | | 2024-12-23 | [place] | 91.6 | % | (missing) | | NRBC.BLD.QN. | 04:00 | [facility] | | | | | AUTO (K/UL) | | Medical | | | | | | | Center | | | | + + + +---------+ + + + + | Result panel 14 | + + + + + + + + + | | 2024-12-24 | [place] | 0.0 | per 100 | (missing) | | NRBC.BLD.QN. | 04:00 | [facility] | | [facility] | | | AUTO (K/UL) | | Medical | | | | | | | Center | | | | + + + + + + + | | 2024-12-24 | [place] | 0.00 | k/ul | (missing) | | NRBC.BLD.QN. | 04:00 | [facility] | | | | | AUTO (K/UL) | | Medical | | | | | | | Center | | | | + + + + + + + | | 2024-12-24 | [place] | 0.03 | k/ul | (missing) | | NRBC.BLD.QN. | 04:00 | [facility] | | | | | AUTO (K/UL) | | Medical | | | | | | | Center | | | | + + + + + + + | | 2024-12-24 | [place] | 0.05 | k/ul | (missing) | | NRBC.BLD.QN. | 04:00 | [facility] | | | | | AUTO (K/UL) | | Medical | | | | | | | Center | | | | + + + + + + + | | 2024-12-24 | [place] | 0.08 | k/ul | (missing) | | NRBC.CALIXTOD.QN. | 04:00 | [facility] | | | | | AUTO (K/UL) | | Medical | | | | | | | Center | | | | + + + + + + + | | 2024-12-24 | [place] | 0.4 | % | (missing) | | NRBC.CALIXTOD.QN. | 04:00 | [facility] | | | | | AUTO (K/UL) | | Medical | | | | | | | Center | | | | + + + + + + + | | 2024-12-24 | [place] | 0.44 | k/ul | (missing) | | NRBC.CALIXTOD.QN. | 04:00 | [facility] | | | | | AUTO (K/UL) | | Medical | | | | | | | Center | | | | + + + + + + + | EGFR | 2024-12-24 | [place] | 0.52 | mg/dl | (missing) | | ML/MIN/1.73 | 04:00 | [facility] | | | | | S[facility] | | Medical | | | | | M.PREDICTED | | Center | | | | + + + + + + + | | 2024-12-24 | [place] | 0.58 | k/ul | (missing) | | NRBC.BLD.QN. | 04:00 | [facility] | | | | | AUTO (K/UL) | | Medical | | | | | | | Center | | | | + + + + + + + | | 2024-12-24 | [place] | 0.6 | % | (missing) | | NRBC.BLD.QN. | 04:00 | [facility] | | | | | AUTO (K/UL) | | Medical | | | | | | | Center | | | | + + + + + + + | | 2024-12-24 | [place] | 1.0 | % | (missing) | | NRBC.BLD.QN. | 04:00 | [facility] | | | | | AUTO (K/UL) | | Medical | | | | | | | Center | | | | + + + + + + + | EGFR | 2024-12-24 | [place] | 10 | mmol/l | (missing) | | ML/MIN/1.73 | 04:00 | [facility] | | | | | SQ | | Medical | | | | | M.PREDICTED | | Center | | | | + + + + + + + | | 2024-12-24 | [place] | 10.2 | g/dl | (missing) | | NRBC.BLD.QN. | 04:00 | [facility] | | | | | AUTO (K/UL) | | Medical | | | | | | | Center | | | | + + + + + + + | EGFR | 2024-12-24 | [place] | 101 | mmol/l | (missing) | | ML/MIN/1.73 | 04:00 | [facility] | | | | | SQ | | Medical | | | | | M.PREDICTED | | Center | | | | + + + + + + + | EGFR | 2024-12-24 | [place] | 104 | mg/dl | Diagnostic | | ML/MIN/1.73 | 04:00 | [facility] | | | Categories | | SQ [...] + + | EGFR | 2024-12-24 | [place] | 104 | | GFR value | | ML/MIN/1.73 | 04:00 | [facility] | | ml/min/1.73m | was | | [...] | | | | | | | [place] | | | | | | | [...] + + | EGFR | 2024-12-24 | [place] | 12 | mg/dl | (missing) | | ML/MIN/1.73 | 04:00 | [facility] | | | | | SQ | | Medical | | | | | M.PREDICTED | | Center | | | | + + + + + + + | | 2024-12-24 | [place] | 13.5 | % | (missing) | | NRBC.BLD.QN. | 04:00 | [facility] | | | | | AUTO (K/UL) | | Medical | | | | | | | Center | | | | + + + + + + + | EGFR | 2024-12-24 | [place] | 135 | mmol/l | Add to | | ML/MIN/1.73 | 04:00 | [facility] | | | blood in lab | | SQ | | Medical | | | only if not | | M.PREDICTED | | Center | | | done on | | | | | | | admission. | + + + + + + + | | 2024-12-24 | [place] | 162 | k/ul | (missing) | | NRBC.BLD.QN. | 04:00 | [facility] | | | | | AUTO (K/UL) | | Medical | | | | | | | Center | | | | + + + + + + + | | 2024-12-24 | [place] | 2.73 | ng/ml | Clinical | | PROCALCITONI | 04:00 | [facility] | | | Procalcitoni | | N [...] + + | EGFR | 2024-12-24 | [place] | 23.1 | (missing) | (missing) | | ML/MIN/1.73 | 04:00 | [facility] | | | | | SQ | | Medical | | | | | M.PREDICTED | | Center | | | | + + + + + + + | EGFR | 2024-12-24 | [place] | 24 | mmol/l | (missing) | | ML/MIN/1.73 | 04:00 | [facility] | | | | | SQ | | Medical | | | | | M.PREDICTED | | Center | | | | + + + + + + + | | 2024-12-24 | [place] | 29.1 | pg | (missing) | | NRBC.BLD.QN. | 04:00 | [facility] | | | | | AUTO (K/UL) | | Medical | | | | | | | Center | | | | + + + + + + + | EGFR | 2024-12-24 | [place] | 3.3 | mmol/l | (missing) | | ML/MIN/1.73 | 04:00 | [facility] | | | | | SQ | | Medical | | | | | M.PREDICTED | | Center | | | | + + + + + + + | | 2024-12-24 | [place] | 3.51 | m/ul | (missing) | | NRBC.BLD.QN. | 04:00 | [facility] | | | | | AUTO (K/UL) | | Medical | | | | | | | Center | | | | + + + + + + + | | 2024-12-24 | [place] | 30.7 | % | (missing) | | NRBC.BLD.QN. | 04:00 | [facility] | | | | | AUTO (K/UL) | | Medical | | | | | | | Center | | | | + + + + + + + | | 2024-12-24 | [place] | 33.2 | g/dl | (missing) | | NRBC.BLD.QN. | 04:00 | [facility] | | | | | AUTO (K/UL) | | Medical | | | | | | | Center | | | | + + + + + + + | | 2024-12-24 | [place] | 42.3 | fl | (missing) | | NRBC.BLD.QN. | 04:00 | [facility] | | | | | AUTO (K/UL) | | Medical | | | | | | | Center | | | | + + + + + + + | | 2024-12-24 | [place] | 5.3 | % | (missing) | | NRBC.BLD.QN. | 04:00 | [facility] | | | | | AUTO (K/UL) | | Medical | | | | | | | Center | | | | + + + + + + + | | 2024-12-24 | [place] | 7.0 | % | (missing) | | NRBC.BLD.QN. | 04:00 | [facility] | | | | | AUTO (K/UL) | | Medical | | | | | | | Center | | | | + + + + + + + | | 2024-12-24 | [place] | 7.14 | k/ul | (missing) | | NRBC.BLD.QN. | 04:00 | [facility] | | | | | AUTO (K/UL) | | Medical | | | | | | | Center | | | | + + + + + + + | | 2024-12-24 | [place] | 8.32 | k/ul | (missing) | | NRBC.BLD.QN. | 04:00 | [facility] | | | | | AUTO (K/UL) | | Medical | | | | | | | Center | | | | + + + + + + + | EGFR | 2024-12-24 | [place] | 8.5 | mg/dl | (missing) | | ML/MIN/1.73 | 04:00 | [facility] | | | | | SQ | | Medical | | | | | M.PREDICTED | | Center | | | | + + + + + + + | | 2024-12-24 | [place] | 85.7 | % | (missing) | | NRBC.BLD.QN. | 04:00 | [facility] | | | | | AUTO (K/UL) | | Medical | | | | | | | Center | | | | + + + + + + + | | 2024-12-24 | [place] | 87.5 | fl | (missing) | | NRBC.BLD.QN. | 04:00 | [facility] | | | | | AUTO (K/UL) | | Medical | | | | | | | Center | | | | + + + + + + + | | 2024-12-24 | [place] | 9.4 | fl | (missing) | | NRBC.BLD.QN. | 04:00 | [facility] | | | | | AUTO (K/UL) | | Medical | | | | | | | Center | | | | + + + + + + + | CULTURE | 2024-12-24 | [place] | No Growth | (missing) | (missing) | | | 04:00 | [facility] | | | | | | | Medical | | | | | | | Center | | | | + + + + + + + | CULTURE | 2024-12-24 | [place] | No growth | (missing) | (missing) | | | 04:00 | [facility] | to date | | | | | | Medical | | | | | | | Center | | | | + + + + + + + + + | Result panel 15 | + + + + + +--------+ + + | EGFR | 2024-12-24 | [place] | 0.70 | mg/dl | (missing) | | ML/MIN/1.73 | 17:13 | [facility] | | | | | SQ | | Medical | | | | | M.PREDICTED | | Center | | | | + + + +--------+ + + | | 2024-12-24 | [place] | 1.8 | mg/dl | (missing) | | MAGNESIUM.SE | 17:13 | [facility] | | | | | R/PLAS.QN | | Medical | | | | | (MG/DL) | | Center | | | | + + + +--------+ + + | EGFR | 2024-12-24 | [place] | 102 | mmol/l | (missing) | | ML/MIN/1.73 | 17:13 | [facility] | | | | | SQ | | Medical | | | | | M.PREDICTED | | Center | | | | + + + +--------+ + + | EGFR | 2024-12-24 | [place] | 11 | mg/dl | (missing) | | ML/MIN/1.73 | 17:13 | [facility] | | | | | SQ | | Medical | | | | | M.PREDICTED | | Center | | | | + + + +--------+ + + | EGFR | 2024-12-24 | [place] | 117 | mg/dl | Diagnostic | | ML/MIN/1.73 | 17:13 | [facility] | | | Categories | | SQ [...] + + | EGFR | 2024-12-24 | [place] | 137 | mmol/l | (missing) | | ML/MIN/1.73 | 17:13 | [facility] | | | | | SQ | | Medical | | | | | M.PREDICTED | | Center | | | | + + + +--------+ + + | EGFR | 2024-12-24 | [place] | 15.7 | (missing) | (missing) | | ML/MIN/1.73 | 17:13 | [facility] | | | | | SQ | | Medical | | | | | M.PREDICTED | | Center | | | | + + + +--------+ + + | EGFR | 2024-12-24 | [place] | 26 | mmol/l | (missing) | | ML/MIN/1.73 | 17:13 | [facility] | | | | | SQ | | Medical | | | | | M.PREDICTED | | Center | | | | + + + +--------+ + + | EGFR | 2024-12-24 | [place] | 3.4 | mmol/l | (missing) | | ML/MIN/1.73 | 17:13 | [facility] | | | | | SQ | | Medical | | | | | M.PREDICTED | | Center | | | | + + + +--------+ + + | EGFR | 2024-12-24 | [place] | 9 | mmol/l | (missing) | | ML/MIN/1.73 | 17:13 | [facility] | | | | | SQ | | Medical | | | | | M.PREDICTED | | Center | | | | + + + +--------+ + + | EGFR | 2024-12-24 | [place] | 9.2 | mg/dl | (missing) | | ML/MIN/1.73 | 17:13 | [facility] | | | | | SQ | | Medical | | | | | M.PREDICTED | | Center | | | | + + + +--------+ + + | EGFR | 2024-12-24 | [place] | 95 | | GFR value | | ML/MIN/1.73 | 17:13 | [facility] | | ml/min/1.73m | was | | [...] | | | | | | | [place] | | | | | | | [...] +--------+ + + | | 2024-12-25 | [place] | 0.0 | per 100 | (missing) | | NRBC.BLD.QN. | 04:00 | [facility] | | [facility] | | | AUTO (K/UL) | | Medical | | | | | | | Center | | | | + + + +--------+ + + | | 2024-12-25 | [place] | 0.00 | k/ul | (missing) | | NRBC.BLD.QN. | 04:00 | [facility] | | | | | AUTO (K/UL) | | Medical | | | | | | | Center | | | | + + + +--------+ + + | EGFR | 2024-12-25 | [place] | 0.64 | mg/dl | (missing) | | ML/MIN/1.73 | 04:00 | [facility] | | | | | SQ | | Medical | | | | | M.PREDICTED | | Center | | | | + + + +--------+ + + | | 2024-12-25 | [place] | 1.9 | mg/dl | (missing) | | MAGNESIUM.SE | 04:00 | [facility] | | | | | R/PLAS.QN | | Medical | | | | | (MG/DL) | | Center | | | | + + + +--------+ + + | EGFR | 2024-12-25 | [place] | 101 | mmol/l | (missing) | | ML/MIN/1.73 | 04:00 | [facility] | | | | | SQ | | Medical | | | | | M.PREDICTED | | Center | | | | + + + +--------+ + + | EGFR | 2024-12-25 | [place] | 107 | mg/dl | Diagnostic | | ML/MIN/1.73 | 04:00 | [facility] | | | Categories | | SQ [...] + + | EGFR | 2024-12-25 | [place] | 11 | mg/dl | (missing) | | ML/MIN/1.73 | 04:00 | [facility] | | | | | SQ | | Medical | | | | | M.PREDICTED | | Center | | | | + + + +--------+ + + | EGFR | 2024-12-25 | [place] | 11 | mmol/l | (missing) | | ML/MIN/1.73 | 04:00 | [facility] | | | | | SQ | | Medical | | | | | M.PREDICTED | | Center | | | | + + + +--------+ + + | | 2024-12-25 | [place] | 11.3 | g/dl | (missing) | | NRBC.BLD.QN. | 04:00 | [facility] | | | | | AUTO (K/UL) | | Medical | | | | | | | Center | | | | + + + +--------+ + + | | 2024-12-25 | [place] | 13.5 | % | (missing) | | NRBC.BLD.QN. | 04:00 | [facility] | | | | | AUTO (K/UL) | | Medical | | | | | | | Center | | | | + + + +--------+ + + | EGFR | 2024-12-25 | [place] | 137 | mmol/l | (missing) | | ML/MIN/1.73 | 04:00 | [facility] | | | | | SQ | | Medical | | | | | M.PREDICTED | | Center | | | | + + + +--------+ + + | EGFR | 2024-12-25 | [place] | 17.2 | (missing) | (missing) | | ML/MIN/1.73 | 04:00 | [facility] | | | | | SQ | | Medical | | | | | M.PREDICTED | | Center | | | | + + + +--------+ + + | | 2024-12-25 | [place] | 218 | k/ul | (missing) | | NRBC.BLD.QN. | 04:00 | [facility] | | | | | AUTO (K/UL) | | Medical | | | | | | | Center | | | | + + + +--------+ + + | EGFR | 2024-12-25 | [place] | 25 | mmol/l | (missing) | | ML/MIN/1.73 | 04:00 | [facility] | | | | | SQ | | Medical | | | | | M.PREDICTED | | Center | | | | + + + +--------+ + + | | 2024-12-25 | [place] | 29.0 | pg | (missing) | | NRBC.BLD.QN. | 04:00 | [facility] | | | | | AUTO (K/UL) | | Medical | | | | | | | Center | | | | + + + +--------+ + + | EGFR | 2024-12-25 | [place] | 3.7 | mmol/l | (missing) | | ML/MIN/1.73 | 04:00 | [facility] | | | | | SQ | | Medical | | | | | M.PREDICTED | | Center | | | | + + + +--------+ + + | | 2024-12-25 | [place] | 3.90 | m/ul | (missing) | | NRBC.BLD.QN. | 04:00 | [facility] | | | | | AUTO (K/UL) | | Medical | | | | | | | Center | | | | + + + +--------+ + + | | 2024-12-25 | [place] | 33.3 | g/dl | (missing) | | NRBC.BLD.QN. | 04:00 | [facility] | | | | | AUTO (K/UL) | | Medical | | | | | | | Center | | | | + + + +--------+ + + | | 2024-12-25 | [place] | 33.9 | % | (missing) | | NRBC.BLD.QN. | 04:00 | [facility] | | | | | AUTO (K/UL) | | Medical | | | | | | | Center | | | | + + + +--------+ + + | | 2024-12-25 | [place] | 42.3 | fl | (missing) | | NRBC.BLD.QN. | 04:00 | [facility] | | | | | AUTO (K/UL) | | Medical | | | | | | | Center | | | | + + + +--------+ + + | | 2024-12-25 | [place] | 6.41 | k/ul | (missing) | | NRBC.BLD.QN. | 04:00 | [facility] | | | | | AUTO (K/UL) | | Medical | | | | | | | Center | | | | + + + +--------+ + + | EGFR | 2024-12-25 | [place] | 8.9 | mg/dl | (missing) | | ML/MIN/1.73 | 04:00 | [facility] | | | | | SQ | | Medical | | | | | M.PREDICTED | | Center | | | | + + + +--------+ + + | | 2024-12-25 | [place] | 86.9 | fl | (missing) | | NRBC.BLD.QN. | 04:00 | [facility] | | | | | AUTO (K/UL) | | Medical | | | | | | | Center | | | | + + + +--------+ + + | | 2024-12-25 | [place] | 9.8 | fl | (missing) | | NRBC.BLD.QN. | 04:00 | [facility] | | | | | AUTO (K/UL) | | Medical | | | | | | | Center | | | | + + + +--------+ + + | EGFR | 2024-12-25 | [place] | 98 | | GFR value | | ML/MIN/1.73 | 04:00 | [facility] | | ml/min/1.73m | was | | [...] | | | | | | | [place] | | | | | | | [...] + + | EGFR | 2024-12-26 | [place] | 0.59 | mg/dl | (missing) | | ML/MIN/1.73 | 04:00 | [facility] | | | | | SQ | | Medical | | | | | M.PREDICTED | | Center | | | | + + + +--------+ + + | | 2024-12-26 | [place] | 1.8 | mg/dl | (missing) | | MAGNESIUM.SE | 04:00 | [facility] | | | | | R/PLAS.QN | | Medical | | | | | (MG/DL) | | Center | | | | + + + +--------+ + + | EGFR | 2024-12-26 | [place] | 100 | mmol/l | (missing) | | ML/MIN/1.73 | 04:00 | [facility] | | | | | [facility] | | Medical | | | | | M.PREDICTED | | Center | | | | + + + +--------+ + + | EGFR | 2024-12-26 | [place] | 101 | | GFR value | | ML/MIN/1.73 | 04:00 | [facility] | | ml/min/1.73m | was | | [...] | | | | | | | [place] | | | | | | | [...] + + | EGFR | 2024-12-26 | [place] | 13 | mg/dl | (missing) | | ML/MIN/1.73 | 04:00 | [facility] | | | | | [facility] | | Medical | | | | | M[facility]PREDICTED | | Center | | | | + + + +--------+ + + | EGFR | 2024-12-26 | [place] | 136 | mmol/l | (missing) | | ML/MIN/1.73 | 04:00 | [facility] | | | | | [facility] | | Medical | | | | | [facility].PREDICTED | | Center | | | | + + + +--------+ + + | EGFR | 2024-12-26 | [place] | 22.0 | (missing) | (missing) | | ML/MIN/1.73 | 04:00 | [facility] | | | | | [facility] | | Medical | | | | | [facility]PREDICTED | | Center | | | | + + + +--------+ + + | EGFR | 2024-12-26 | [place] | 27 | mmol/l | (missing) | | ML/MIN/1.73 | 04:00 | [facility] | | | | | [facility] | | Medical | | | | | M.PREDICTED | | Center | | | | + + + +--------+ + + | EGFR | 2024-12-26 | [place] | 3.6 | mmol/l | (missing) | | ML/MIN/1.73 | 04:00 | [facility] | | | | | [facility] | | Medical | | | | | M[facility]PREDICTED | | Center | | | | + + + +--------+ + + | EGFR | 2024-12-26 | [place] | 9 | mmol/l | (missing) | | ML/MIN/1.73 | 04:00 | [facility] | | | | | [facility] | | Medical | | | | | [facility]PREDICTED | | Center | | | | + + + +--------+ + + | EGFR | 2024-12-26 | [place] | 9.2 | mg/dl | (missing) | | ML/MIN/1.73 | 04:00 | [facility] | | | | | [facility] | | Medical | | | | | M[facility]PREDICTED | | Center | | | | + + + +--------+ + + | EGFR | 2024-12-26 | [place] | 99 | mg/dl | Diagnostic | | ML/MIN/1.73 | 04:00 | [facility] | | | Categories | | SQ [...] + + | EGFR | 2024-12-28 | [place] | 0.63 | mg/dl | (missing) | | ML/MIN/1.73 | 04:00 | [facility] | | | | | [facility] | | Medical | | | | | M.PREDICTED | | Center | | | | + + + +--------+ + + | EGFR | 2024-12-28 | [place] | 100 | mmol/l | (missing) | | ML/MIN/1.73 | 04:00 | [facility] | | | | | [facility] | | Medical | | | | | [facility]PREDICTED | | Center | | | | + + + +--------+ + + | EGFR | 2024-12-28 | [place] | 101 | mg/dl | Diagnostic | | ML/MIN/1.73 | 04:00 | [facility] | | | Categories | | SQ [...] + + | EGFR | 2024-12-28 | [place] | 133 | mmol/l | (missing) | | ML/MIN/1.73 | 04: | [facility] | | | | | [facility] | | Medical | | | | | M.PREDICTED | | Center | | | | + + + +--------+ + + | | 2024-12-28 | [place] | 2.0 | mg/dl | (missing) | | MAGNESIUM.SE | 04:00 | [facility] | | | | | R/PLAS.QN | | Medical | | | | | (MG/DL) | | Center | | | | + + + +--------+ + + | EGFR | 2024-12-28 | [place] | 20 | mg/dl | (missing) | | ML/MIN/1.73 | 04:00 | [facility] | | | | | [facility] | | Medical | | | | | [facility]PREDICTED | | Center | | | | + + + +--------+ + + | EGFR | 2024-12-28 | [place] | 24 | mmol/l | (missing) | | ML/MIN/1.73 | 04:00 | [facility] | | | | | [facility] | | Medical | | | | | M[facility]PREDICTED | | Center | | | | + + + +--------+ + + | EGFR | 2024-12-28 | [place] | 3.9 | mmol/l | (missing) | | ML/MIN/1.73 | 04:00 | [facility] | | | | | [facility] | | Medical | | | | | M[facility]PREDICTED | | Center | | | | + + + +--------+ + + | EGFR | 2024-12-28 | [place] | 31.7 | (missing) | (missing) | | ML/MIN/1.73 | 04:00 | [facility] | | | | | [facility] | | Medical | | | | | M[facility]PREDICTED | | Center | | | | + + + +--------+ + + | EGFR | 2024-12-28 | [place] | 9 | mmol/l | (missing) | | ML/MIN/1.73 | 04:00 | [facility] | | | | | [facility] | | Medical | | | | | [facility]PREDICTED | | Center | | | | + + + +--------+ + + | EGFR | 2024-12-28 | [place] | 9.2 | mg/dl | (missing) | | ML/MIN/1.73 | 04:00 | [facility] | | | | | [facility] | | Medical | | | | | [facility]PREDICTED | | Center | | | | + + + +--------+ + + | EGFR | 2024-12-28 | [place] | 99 | | GFR value | | ML/MIN/1.73 | 04:00 | [facility] | | ml/min/1.73m | was | | [...] | | | | | | | [place] | | | | | | | [...] + + | EGFR | 2024-12-29 | [place] | 0.65 | mg/dl | (missing) | | ML/MIN/1.73 | 04:00 | [facility] | | | | | [facility] | | Medical | | | | | M[facility]PREDICTED | | Center | | | | + + + +--------+ + + | EGFR | 2024-12-29 | [place] | 11 | mmol/l | (missing) | | ML/MIN/1.73 | 04:00 | [facility] | | | | | [facility] | | Medical | | | | | M[facility]PREDICTED | | Center | | | | + + + +--------+ + + | EGFR | 2024-12-29 | [place] | 133 | mmol/l | (missing) | | ML/MIN/1.73 | 04:00 | [facility] | | | | | [facility] | | Medical | | | | | M[facility]PREDICTED | | Center | | | | + + + +--------+ + + | EGFR | 2024-12-29 | [place] | 18 | mg/dl | (missing) | | ML/MIN/1.73 | 04:00 | [facility] | | | | | [facility] | | Medical | | | | | M[facility]PREDICTED | | Center | | | | + + + +--------+ + + | | 2024-12-29 | [place] | 2.2 | mg/dl | (missing) | | MAGNESIUM.SE | 04:00 | [facility] | | | | | R/PLAS.QN | | Medical | | | | | (MG/DL) | | Center | | | | + + + +--------+ + + | EGFR | 2024-12-29 | [place] | 23 | mmol/l | (missing) | | ML/MIN/1.73 | 04:00 | [facility] | | | | | [facility] | | Medical | | | | | [facility]PREDICTED | | Center | | | | + + + +--------+ + + | EGFR | 2024-12-29 | [place] | 27.7 | (missing) | (missing) | | ML/MIN/1.73 | 04:00 | [facility] | | | | | [facility] | | Medical | | | | | M[facility]PREDICTED | | Center | | | | + + + +--------+ + + | EGFR | 2024-12-29 | [place] | 4.1 | mmol/l | (missing) | | ML/MIN/1.73 | 04:00 | [facility] | | | | | [facility] | | Medical | | | | | M[facility]PREDICTED | | Center | | | | + + + +--------+ + + | EGFR | 2024-12-29 | [place] | 9.5 | mg/dl | (missing) | | ML/MIN/1.73 | 04:00 | [facility] | | | | | [facility] | | Medical | | | | | [facility]PREDICTED | | Center | | | | + + + +--------+ + + | EGFR | 2024-12-29 | [place] | 94 | mg/dl | Diagnostic | | ML/MIN/1.73 | 04:00 | [facility] | | | Categories | | SQ [...] + + | EGFR | 2024-12-29 | [place] | 98 | | GFR value | | ML/MIN/1.73 | 04:00 | [facility] | | ml/min/1.73m | was | | [...] | | | | | | | [place] | | | | | | | [...] + + | EGFR | 2024-12-29 | [place] | 99 | mmol/l | (missing) | | ML/MIN/1.73 | 04:00 | [facility] | | | | | [facility] | | Medical | | | | | [facility]PREDICTED | | Center | | | | + + + +--------+ + + + + | Result panel 20 | + + + + + +--------+ + + | | 2024-12-30 | [place] | 0.0 | per 100 | (missing) | | NRBC.BLD.QN. | 11:13 | [facility] | | [facility] | | | AUTO (K/UL) | | [facility] | | | | | | | [facility] | | | | + + + +--------+ + + | | 2024-12-30 | [place] | 0.00 | k/ul | (missing) | | NRBC.BLD.QN. | 11:13 | [facility] | | | | | AUTO (K/UL) | | [facility] | | | | | | | Center | | | | + + + +--------+ + + | | 2024-12-30 | [place] | 0.08 | k/ul | (missing) | | NRBC.BLD.QN. | 11:13 | [facility] | | | | | AUTO (K/UL) | | [facility] | | | | | | | Center | | | | + + + +--------+ + + | | 2024-12-30 | [place] | 0.11 | k/ul | (missing) | | NRBC.BLD.QN. | 11:13 | [facility] | | | | | AUTO (K/UL) | | [facility] | | | | | | | Center | | | | + + + +--------+ + + | | 2024-12-30 | [place] | 0.20 | k/ul | (missing) | | NRBC.BLD.QN. | 11:13 | [facility] | | | | | AUTO (K/UL) | | [facility] | | | | | | | Center | | | | + + + +--------+ + + | | 2024-12-30 | [place] | 0.64 | k/ul | (missing) | | NRBC.CALIXTOD.QN. | 11:13 | [facility] | | | | | AUTO (K/UL) | | [facility] | | | | | | | Center | | | | + + + +--------+ + + | | 2024-12-30 | [place] | 0.98 | k/ul | (missing) | | NRBC.BLD.QN. | 11:13 | [facility] | | | | | AUTO (K/UL) | | [facility] | | | | | | | Center | | | | + + + +--------+ + + | | 2024-12-30 | [place] | 1.0 | % | (missing) | | NRBC.BLD.QN. | 11:13 | [facility] | | | | | AUTO (K/UL) | | [facility] | | | | | | | Center | | | | + + + +--------+ + + | | 2024-12-30 | [place] | 1.4 | % | (missing) | | NRBC.BLD.QN. | 11:13 | [facility] | | | | | AUTO (K/UL) | | [facility] | | | | | | | Center | | | | + + + +--------+ + + | | 2024-12-30 | [place] | 12.7 | % | (missing) | | NRBC.BLD.QN. | 11:13 | [facility] | | | | | AUTO (K/UL) | | [facility] | | | | | | | [facility] | | | | + + + +--------+ + + | | 2024-12-30 | [place] | 13.2 | g/dl | (missing) | | NRBC.BLD.QN. | 11:13 | [facility] | | | | | AUTO (K/UL) | | [facility] | | | | | | | Center | | | | + + + +--------+ + + | | 2024-12-30 | [place] | 13.5 | % | (missing) | | NRBC.BLD.QN. | 11:13 | [facility] | | | | | AUTO (K/UL) | | [facility] | | | | | | | Center | | | | + + + +--------+ + + | | 2024-12-30 | [place] | 2.6 | % | (missing) | | NRBC.BLD.QN. | 11:13 | [facility] | | | | | AUTO (K/UL) | | [facility] | | | | | | | Center | | | | + + + +--------+ + + | | 2024-12-30 | [place] | 28.5 | pg | (missing) | | NRBC.BLD.QN. | 11:13 | [facility] | | | | | AUTO (K/UL) | | [facility] | | | | | | | [facility] | | | | + + + +--------+ + + | | 2024-12-30 | [place] | 33.2 | g/dl | (missing) | | NRBC.BLD.QN. | 11:13 | [facility] | | | | | AUTO (K/UL) | | [facility] | | | | | | | [facility] | | | | + + + +--------+ + + | | 2024-12-30 | [place] | 371 | k/ul | (missing) | | NRBC.BLD.QN. | 11:13 | [facility] | | | | | AUTO (K/UL) | | [facility] | | | | | | | Center | | | | + + + +--------+ + + | | 2024-12-30 | [place] | 39.7 | % | (missing) | | NRBC.BLD.QN. | 11:13 | [facility] | | | | | AUTO (K/UL) | | [facility] | | | | | | | [facility] | | | | + + + +--------+ + + | | 2024-12-30 | [place] | 4.63 | m/ul | (missing) | | NRBC.BLD.QN. | 11:13 | [facility] | | | | | AUTO (K/UL) | | [facility] | | | | | | | Center | | | | + + + +--------+ + + | | 2024-12-30 | [place] | 41.1 | fl | (missing) | | NRBC.BLD.QN. | 11:13 | [facility] | | | | | AUTO (K/UL) | | [facility] | | | | | | | [facility] | | | | + + + +--------+ + + | | 2024-12-30 | [place] | 5.71 | k/ul | (missing) | | NRBC.BLD.QN. | 11:13 | [facility] | | | | | AUTO (K/UL) | | [facility] | | | | | | | [facility] | | | | + + + +--------+ + + | | 2024-12-30 | [place] | 7.72 | k/ul | (missing) | | NRBC.BLD.QN. | 11:13 | [facility] | | | | | AUTO (K/UL) | | [facility] | | | | | | | Center | | | | + + + +--------+ + + | | 2024-12-30 | [place] | 74.0 | % | (missing) | | NRBC.BLD.QN. | 11:13 | [facility] | | | | | AUT[facility] (K/UL) | | [facility] | | | | | | | [facility] | | | | + + + +--------+ + + | | 2024-12-30 | [place] | 8.3 | % | (missing) | | NRBC.BLD.QN. | 11:13 | [facility] | | | | | AUTO (K/UL) | | [facility] | | | | | | | Center | | | | + + + +--------+ + + | | 2024-12-30 | [place] | 85.7 | fl | (missing) | | NRBC.BLD.QN. | 11:13 | [facility] | | | | | AUTO (K/UL) | | [facility] | | | | | | | [facility] | | | | + + + +--------+ + + | | 2024-12-30 | [place] | 9.1 | fl | (missing) | | NRCHRIS.DEWAYNE.VipulN. | 11:13 | [facility] | | | | | AUTO (K/UL) | | [facility] | | | | | | | [facility] | | | | + + + +--------+ + + Social History +--------+ + + | date | description | facility | +--------+ + + Vital Signs No information."
[~2025-01-26 15:03] MED LIST changes: +ATORVASTATIN CA80 MG PO; +ENTRESTO 49 MG1 EACH PO; +FARXIGA10 MG PO; +HYDROCODON-ACE1 EA10 PO; +METOPROLOL SUCC50 MG PO; +SOTALOL AF120 MG PO
[2025-01-26 16:04] LABS: BASOPHILS 0.3 % (0.2-1.2); EOSINOPHILS 0 % (0.8-7.0); LYMPHOCYTES 3.5 % (21.8-53.1); MCH 28.8 PG (25.7-32.2); MCHC 32.8 g/dL (32.3-36.5); MCV 87.9 fL (79.0-92.2); MONOCYTES 3.7 % (5.3-12.2); NEUTROPHILS 92.2 % (34.0-67.9); RBC 4.30 M/uL (4.63-6.08)
[2025-01-26 16:06] LABS: BLOOD/HGB, URINE LARGE (Negative); KETONE, URINE TRACE (Negative); LEUK ESTERASE, URINE TRACE (negative); NITRITE, URINE POSITIVE (negative)
[2025-01-26 16:10] LABS: INR 1.51 (0.80-1.30); PROTIME 17.2 Sec (11.2-14.2)
[2025-01-26 16:13] LABS: BACTERIA, URINE 1+ /hpf (negative); CASTS, URINE NONE SEEN \\lpf; CRYSTALS, URINE NONE SEEN (0-1+); EPITHELIAL CELLS, URINE 0 /lpf (0-1+)
[2025-01-26 16:14] LABS: ALT (SGPT) 20.0 U/L (14-59); AST (SGOT) 22.0 U/L (15-37); GLOMERULAR FILTRATION RATE,EST 90.0 mL/min (>60); PROTEIN, TOTAL 6.8 g/dL (6.4-8.2); UREA NITROGEN 16.0 mg/dL (7-18)
[2025-01-26 16:14] LABS: REFLEX CULTURE, URINE No (No)
[2025-01-26 16:18] LABS: LACTIC ACID, BLOOD 2.8 mmol/L (0.4-2.0)
[2025-01-26] MEDS ORDERED: SODIUM CHLORIDE 0.9% 1,000 ML IV PRN (16:45)
[2025-01-26] MEDS ORDERED: CEPHALEXIN500 M1 PO (19:04)
[2025-01-26 19:11] VITALS: BP 109/72
== END 2025-01-26 19:14 | disposition home or self-care (01) ==
LOC: ED 15:03
PROVIDERS: Emergency Medicine
DX: N39.0 Urinary tract infection, site not specified (principal); R31.9 Hematuria, unspecified; I48.91 Unspecified atrial fibrillation; I25.2 Old myocardial infarction; I10 Essential (primary) hypertension; E78.00 Pure hypercholesterolemia, unspecified; Z95.5 Presence of coronary angioplasty implant and graft; Z79.82 Long term (current) use of aspirin; Z79.01 Long term (current) use of anticoagulants; Z79.899 Other long term (current) drug therapy
CPT/HCPCS: 36415; 80053; 81001; 83605; 85025; 85610; 85730; 87040; 96361; 96365; 99283; J0696; J7030

== ENCOUNTER 2025-01-31 11:46 | Emergency (ER) | payer MEDICARE, OTHER ==
[~2025-01-31] VITALS: Ht 182.9 cm; Wt 92.9 kg
--- OUTSIDE RECORDS SUMMARY | ~2025-01-31 | XMS | Continuity of Care Document ---
Demographics + + + | Address | [address] | | | [place] [address] | + + + | Preferred Language | Unknown | + + + | Marital Status | Unknown | + + + | Tenriism Affiliation | Unknown | + + + | Race | White | + + + | Ethnic Group | Unknown | + + + Author + + + | Author | [facility] | + + + | Organization | [facility] | + + + | Address | [address] | | | [place] [address] | + + + | Phone | | + + + Care Team Providers + + + + | Care Gold Charmer Name | Role | Phone | + + + + Unavailable | Unavailable | + + + + Allergies No information. Encounters No information. Functional Status No information. Immunizations No information. Medications No information. Problems No information. Procedures No information. Results/Labs +--------+--------+ +---------+--------+---------+ | test | date | facility | value | unit | notes | +--------+--------+ +---------+--------+---------+ + + | Result panel 1 | + + + + + + + + + | STAIN | 2024-12-22 | [facility] | (missing) | (missing) | 12/23/2024 | | RESULT.XXX.N | 05:07 | [facility] | | | 02:17 AM BY | | OM | | Medical | | | [facility] | | | | Center | | | | + + + + + + + | Tobramycin | 2024-12-22 | [facility] | (missing) | (missing) | 12/23/2024 | | | 05:07 | [facility] | | | 02:17 AM BY | | | | Medical | | | [facility] | | | | Center | | | | + + + + + + + | STAIN | 2024-12-22 | [facility] | (missing) | (missing) | Critical | | RESULT.XXX.N | 05:07 | [facility] | | | result was | | OM | | Medical | | | given to: | | | | Center | | | | + + + + + + + | Tobramycin | 2024-12-22 | [facility] | (missing) | (missing) | Critical | | | 05:07 | [facility] | | | result was | | | | Medical | | | given to: | | | | Center | | | | + + + + + + + | STAIN | 2024-12-22 | [facility] | (missing) | (missing) | Date/Time : | | RESULT.XXX.N | 05:07 | [facility] | | | | | OM | | Medical | | | | | | | Center | | | | + + + + + + + | Tobramycin | 2024-12-22 | [facility] | (missing) | (missing) | Date/Time : | | | 05:07 | [facility] | | | | | | | Medical | | | | | | | Center | | | | + + + + + + + | STAIN | 2024-12-22 | [facility] | (missing) | (missing) | Result was | | RESULT.XXX.N | 05:07 | [facility] | | | read back. | | OM | | Medical | | | | | | | Center | | | | + + + + + + + | Tobramycin | 2024-12-22 | [facility] | (missing) | (missing) | Result was | | | 05:07 | [facility] | | | read back. | | | | Medical | | | | | | | Center | | | | + + + + + + + | STAIN | 2024-12-22 | [facility] | (missing) | (missing) | MYRNA Jose | | RESULT.XXX.N | 05:07 | [facility] | | | at: [facility] | | OM | | Medical | | | | | | | Center | | | | + + + + + + + | Tobramycin | 2024-12-22 | [facility] | (missing) | (missing) | MYRNA B. | | | 05:07 | [facility] | | | at: [facility] | | | | Medical | | | | | | | Center | | | | + + + + + + + | Tobramycin | 2024-12-22 | [facility] | <=1 | (missing) | (missing) | | | 05:07 | [facility] | | | | | | | Medical | | | | | | | Center | | | | + + + + + + + | | 2024-12-22 | [facility] | 0.0 | per 100 | (missing) | | NRBC.BLD.QN. | 05:07 | [facility] | | [facility] | | | AUTO (K/UL) | | Medical | | | | | | | Center | | | | + + + + + + + | | 2024-12-22 | [facility] | 0.00 | k/ul | (missing) | | NRBC.CALIXTOD.QN. | 05:07 | [facility] | | | | | AUTO (K/UL) | | Medical | | | | | | | Center | | | | + + + + + + + | | 2024-12-22 | [facility] | 0.01 | k/ul | (missing) | | NRBC.CALIXTOD.QN. | 05:07 | [facility] | | | | | AUTO (K/UL) | | Medical | | | | | | | Center | | | | + + + + + + + | | 2024-12-22 | [facility] | 0.03 | k/ul | (missing) | | NRBC.BLD.QN. | 05:07 | [facility] | | | | | AUTO (K/UL) | | Medical | | | | | | | Center | | | | + + + + + + + | | 2024-12-22 | [facility] | 0.07 | k/ul | (missing) | | NRBC.DEWAYNE.QN. | 05:07 | [facility] | | | | | AUTO (K/UL) | | Medical | | | | | | | Center | | | | + + + + + + + | | 2024-12-22 | [facility] | 0.09 | k/ul | (missing) | | NRBC.CALIXTOD.QN. | 05:07 | [facility] | | | | | AUTO (K/UL) | | Medical | | | | | | | Center | | | | + + + + + + + | | 2024-12-22 | [facility] | 0.1 | % | (missing) | | NRBC.CALIXTOD.QN. | 05:07 | [facility] | | | | | AUTO (K/UL) | | Medical | | | | | | | Center | | | | + + + + + + + | | 2024-12-22 | [facility] | 0.16 | k/ul | (missing) | | NRBC.BLD.QN. | 05:07 | [facility] | | | | | AUTO (K/UL) | | Medical | | | | | | | Center | | | | + + + + + + + | Tobramycin | 2024-12-22 | [facility] | 0.25 | (missing) | (missing) | | | 05:07 | [facility] | | | | | | | Medical | | | | | | | Center | | | | + + + + + + + | | 2024-12-22 | [facility] | 0.3 | % | (missing) | | NRBC.BLD.QN. | 05:07 | [facility] | | | | | AUTO (K/UL) | | Medical | | | | | | | Center | | | | + + + + + + + | | 2024-12-22 | [facility] | 0.6 | % | (missing) | | NRBC.BLD.QN. | 05:07 | [facility] | | | | | AUTO (K/UL) | | Medical | | | | | | | Center | | | | + + + + + + + | | 2024-12-22 | [facility] | 0.8 | % | (missing) | | NRBC.BLD.QN. | 05:07 | [facility] | | | | | AUTO (K/UL) | | Medical | | | | | | | Center | | | | + + + + + + + | Tobramycin | 2024-12-22 | [facility] | 1.0 | (missing) | (missing) | | | 05:07 | [facility] | | | | | | | Medical | | | | | | | Center | | | | + + + + + + + | EGFR | 2024-12-22 | [facility] | 1.04 | mg/dl | (missing) | | ML/MIN/1.73 | 05:07 | [facility] | | | | | SQ | | Medical | | | | | M.PREDICTED | | Center | | | | + + + + + + + | EGFR | 2024-12-22 | [facility] | 1.3 | (missing) | (missing) | | ML/MIN/1.73 | 05:07 | [facility] | | | | | SQ | | Medical | | | | | M.PREDICTED | | Center | | | | + + + + + + + | | 2024-12-22 | [facility] | 1.4 | % | (missing) | | NRBC.BLD.QN. | 05:07 | [facility] | | | | | AUTO (K/UL) | | Medical | | | | | | | Center | | | | + + + + + + + | EGFR | 2024-12-22 | [facility] | 1.8 | mg/dl | (missing) | | ML/MIN/1.73 | 05:07 | [facility] | | | | | SQ | | Medical | | | | | M.PREDICTED | | Center | | | | + + + + + + + | EGFR | 2024-12-22 | [facility] | 102 | mmol/l | (missing) | | ML/MIN/1.73 | 05:07 | [facility] | | | | | SQ | | Medical | | | | | M.PREDICTED | | Center | | | | + + + + + + + | | 2024-12-22 | [facility] | 11.02 | k/ul | (missing) | | NRBC.BLD.QN. | 05:07 | [facility] | | | | | AUTO (K/UL) | | Medical | | | | | | | Center | | | | + + + + + + + | | 2024-12-22 | [facility] | 11.38 | k/ul | (missing) | | NRBC.BLD.QN. | 05:07 | [facility] | | | | | AUTO (K/UL) | | Medical | | | | | | | Center | | | | + + + + + + + | EGFR | 2024-12-22 | [facility] | 12.5 | (missing) | (missing) | | ML/MIN/1.73 | 05:07 | [facility] | | | | | SQ | | Medical | | | | | M.PREDICTED | | Center | | | | + + + + + + + | | 2024-12-22 | [facility] | 12.8 | g/dl | (missing) | | NRBC.BLD.QN. | 05:07 | [facility] | | | | | AUTO (K/UL) | | Medical | | | | | | | Center | | | | + + + + + + + | EGFR | 2024-12-22 | [facility] | 121 | mg/dl | Diagnostic | | ML/MIN/1.73 | 05:07 | [facility] | | | Categories | | SQ | | Medical | | | (per ADA): | | M.PREDICTED | | Center | | | Fasting: < | | | | | | | 100 mg/dL = | | | | | | | Normal 100 | | | | | | | to 125 mg/dL | | | | | | | = IFG | | | | | | | (Impaired | | | | | | | Fasting | | | | | | | Glucose) >/= | | | | | | | 126 mg/dL = | | | | | | | Diagnosis | | | | | | | of | | | | | | | Diabetes.* 2 | | | | | | | Hr OGTT: < | | | | | | | 140 mg/dL = | | | | | | | Normal 140 | | | | | | | to 199 mg/dL | | | | | | | = IGT | | | | | | | (Impaired | | | | | | | Glucose | | | | | | | Tolerance) | | | | | | | >/= 200 | | | | | | | mg/dL = | | | | | | | Diagnosis of | | | | | | | Diabetes.* | | | | | | | * In the | | | | | | | absence of | | | | | | | unequivocal | | | | | | | hyperglycemi | | | | | | | a, results | | | | | | | should be | | | | | | | confirmed by | | | | | | | repeat | | | | | | | testing. In | | | | | | | Pediatric | | | | | | | patients, | | | | | | | type 1 | | | | | | | diabetes is | | | | | | | more common | | | | | | | and may | | | | | | | warrant more | | | | | | | immediate | | | | | | | attention. | + + + + + + + | EGFR | 2024-12-22 | [facility] | 13 | mg/dl | (missing) | | ML/MIN/1.73 | 05:07 | [facility] | | | | | SQ | | Medical | | | | | M.PREDICTED | | Center | | | | + + + + + + + | EGFR | 2024-12-22 | [facility] | 13 | mmol/l | (missing) | | ML/MIN/1.73 | 05:07 | [facility] | | | | | SQ | | Medical | | | | | M.PREDICTED | | Center | | | | + + + + + + + | | 2024-12-22 | [facility] | 13.2 | % | (missing) | | NRBC.BLD.QN. | 05:07 | [facility] | | | | | AUTO (K/UL) | | Medical | | | | | | | Center | | | | + + + + + + + | EGFR | 2024-12-22 | [facility] | 137 | mmol/l | (missing) | | ML/MIN/1.73 | 05:07 | [facility] | | | | | SQ | | Medical | | | | | M.PREDICTED | | Center | | | | + + + + + + + | EGFR | 2024-12-22 | [facility] | 149 | u/l | (missing) | | ML/MIN/1.73 | 05:07 | [facility] | | | | | SQ | | Medical | | | | | M.PREDICTED | | Center | | | | + + + + + + + | Tobramycin | 2024-12-22 | [facility] | 16 | (missing) | (missing) | | | 05:07 | [facility] | | | | | | | Medical | | | | | | | Center | | | | + + + + + + + | Tobramycin | 2024-12-22 | [facility] | 2.0 | (missing) | (missing) | | | 05:07 | [facility] | | | | | | | Medical | | | | | | | Center | | | | + + + + + + + | EGFR | 2024-12-22 | [facility] | 22 | mmol/l | (missing) | | ML/MIN/1.73 | 05:07 | [facility] | | | | | SQ | | Medical | | | | | M.PREDICTED | | Center | | | | + + + + + + + | EGFR | 2024-12-22 | [facility] | 23 | u/l | (missing) | | ML/MIN/1.73 | 05:07 | [facility] | | | | | SQ | | Medical | | | | | M.PREDICTED | | Center | | | | + + + + + + + | | 2024-12-22 | [facility] | 241 | k/ul | (missing) | | NRBC.BLD.QN. | 05:07 | [facility] | | | | | AUTO (K/UL) | | Medical | | | | | | | Center | | | | + + + + + + + | EGFR | 2024-12-22 | [facility] | 25 | u/l | (missing) | | ML/MIN/1.73 | 05:07 | [facility] | | | | | SQ | | Medical | | | | | M.PREDICTED | | Center | | | | + + + + + + + | | 2024-12-22 | [facility] | 29.1 | pg | (missing) | | NRBC.BLD.QN. | 05:07 | [facility] | | | | | AUTO (K/UL) | | Medical | | | | | | | Center | | | | + + + + + + + | | 2024-12-22 | [facility] | 3.0 | mmol/l | (missing) | | LACTATE.BLD. | 05:07 | [facility] | | | | | QN | | Medical | | | | | | | Center | | | | + + + + + + + | EGFR | 2024-12-22 | [facility] | 3.0 | mmol/l | (missing) | | ML/MIN/1.73 | 05:07 | [facility] | | | | | SQ | | Medical | | | | | M.PREDICTED | | Center | | | | + + + + + + + | EGFR | 2024-12-22 | [facility] | 3.1 | g/dl | (missing) | | ML/MIN/1.73 | 05:07 | [facility] | | | | | SQ | | Medical | | | | | M.PREDICTED | | Center | | | | + + + + + + + | EGFR | 2024-12-22 | [facility] | 3.9 | g/dl | (missing) | | ML/MIN/1.73 | 05:07 | [facility] | | | | | SQ | | Medical | | | | | M.PREDICTED | | Center | | | | + + + + + + + | | 2024-12-22 | [facility] | 33.3 | g/dl | (missing) | | NRBC.BLD.QN. | 05:07 | [facility] | | | | | AUTO (K/UL) | | Medical | | | | | | | Center | | | | + + + + + + + | STAIN | 2024-12-22 | [facility] | | (missing) | Pseudomonas | | RESULT.XXX.N | 05:07 | [facility] | [address] | | aeruginosa | | OM | | Medical | | | Pseudomonas | | | | Center | [facility] | | aeruginosa | + + + + + + + | Tobramycin | 2024-12-22 | [facility] | | (missing) | Pseudomonas | | | 05:07 | [facility] | [address] | | aeruginosa | | | | Medical | | | Pseudomonas | | | | Center | [facility] | | aeruginosa | + + + + + + + | STAIN | 2024-12-22 | [facility] | | (missing) | Pseudomonas | | RESULT.XXX.N | 05:07 | [facility] | [address] | | aeruginosaPr | | OM | | Medical | | | esumptive | | | | Center | [facility] | | identificati | | | | | | | on. | | | | | | | Confirmation | | | | | | | to follow. | | | | | | | Pseudomonas | | | | | | | aeruginosa | + + + + + + + | STAIN | 2024-12-22 | [facility] | | (missing) | Pseudomonas | | RESULT.XXX.N | 05:07 | [facility] | [address] | | aeruginosaRe | | OM | | Medical | | | francisca to | | | | Center | [facility] | | accession # | | | | | | | [id number] | | | | | | | collected | | | | | | | 12/22/24 at | | | | | | | 05:12 for | | | | | | | susceptibili | | | | | | | ty results. | | | | | | | Pseudomonas | | | | | | | aeruginosa | + + + + + + + | STAIN | 2024-12-22 | [facility] | | (missing) | Pseudomonas | | RESULT.XXX.N | 05:07 | [facility] | [address] | | | | OM | | Medical | | | aeruginosaSu | | | | Center | [facility] | | sceptibility | | | | | | | to follow. | | | | | | | Pseudomonas | | | | | | | aeruginosa | + + + + + + + | Tobramycin | 2024-12-22 | [facility] | | (missing) | Pseudomonas | | | 05:07 | [facility] | [address] | | | | | | Medical | | | aeruginosaSu | | | | Center | [facility] | | sceptibility | | | | | | | to follow. | | | | | | | Pseudomonas | | | | | | | aeruginosa | + + + + + + + | | 2024-12-22 | [facility] | 38.4 | % | (missing) | | NRBC.BLD.QN. | 05:07 | [facility] | | | | | AUTO (K/UL) | | Medical | | | | | | | Center | | | | + + + + + + + | | 2024-12-22 | [facility] | 4.40 | m/ul | (missing) | | NRBC.BLD.QN. | 05:07 | [facility] | | | | | AUTO (K/UL) | | Medical | | | | | | | Center | | | | + + + + + + + | | 2024-12-22 | [facility] | 41.5 | fl | (missing) | | NRBC.BLD.QN. | 05:07 | [facility] | | | | | AUTO (K/UL) | | Medical | | | | | | | Center | | | | + + + + + + + | EGFR | 2024-12-22 | [facility] | 7.0 | g/dl | (missing) | | ML/MIN/1.73 | 05:07 | [facility] | | | | | SQ | | Medical | | | | | M.PREDICTED | | Center | | | | + + + + + + + | EGFR | 2024-12-22 | [facility] | 74 | | GFR value | | ML/MIN/1.73 | 05:07 | [facility] | | ml/min/1.73m | was | | SQ | | Medical | | 2 | calculated | | M.PREDICTED | | Center | | | using a new | | | | | | | GFR equation | | | | | | | effective | | | | | | | since | | | | | | | 05/16/21. | | | | | | | This is a | | | | | | | recommendati | | | | | | | on of the | | | | | | | [place] | | | | | | | Society of | | | | | | | Nephrology | | | | | | | and National | | | | | | | Kidney | | | | | | | Foundation. | | | | | | | Clinical | | | | | | | practice | | | | | | | guidelines | | | | | | | suggest the | | | | | | | use of serum | | | | | | | cystatin C | | | | | | | as a | | | | | | | confirmatory | | | | | | | test for | | | | | | | eGFR 45-59 | | | | | | | ml/min/1.73m | | | | | | | 2 in adults | | | | | | | who do not | | | | | | | have markers | | | | | | | of kidney | | | | | | | disease; | | | | | | | eGFR may be | | | | | | | less | | | | | | | accurate in | | | | | | | this range. | + + + + + + + | | 2024-12-22 | [facility] | 87.3 | fl | (missing) | | NRBC.BLD.QN. | 05:07 | [facility] | | | | | AUTO (K/UL) | | Medical | | | | | | | Center | | | | + + + + + + + | STAIN | 2024-12-22 | [facility] | 881GRAM | (missing) | Gram | | RESULT.XXX.N | 05:07 | [facility] | NEGATIVE | | negative | | OM | | Medical | BACILLI | | bacilli Gram | | | | Center | | | Negative | | | | | | | Rods | + + + + + + + | | 2024-12-22 | [facility] | 9.5 | fl | (missing) | | NRBC.BLD.QN. | 05:07 | [facility] | | | | | AUTO (K/UL) | | Medical | | | | | | | Center | | | | + + + + + + + | EGFR | 2024-12-22 | [facility] | 9.5 | mg/dl | (missing) | | ML/MIN/1.73 | 05:07 | [facility] | | | | | SQ | | Medical | | | | | M.PREDICTED | | Center | | | | + + + + + + + | | 2024-12-22 | [facility] | 96.8 | % | (missing) | | NRBC.BLD.QN. | 05:07 | [facility] | | | | | AUTO (K/UL) | | Medical | | | | | | | Center | | | | + + + + + + + | STAIN | 2024-12-22 | [facility] | Gram | (missing) | (missing) | | RESULT.XXX.N | 05:07 | [facility] | negative | | | | OM | | Medical | rods | | | | | | Center | | | | + + + + + + + | Tobramycin | 2024-12-22 | [facility] | Gram | (missing) | (missing) | | | 05:07 | [facility] | negative | | | | | | Medical | rods | | | | | | Center | | | | + + + + + + + + + | Result panel 2 | + + + + + + + + + | MUCUS.URINE | 2024-12-22 | [facility] | >100 | /hpf | (missing) | | SED.ORD | 05:08 | [facility] | | | | | (LPF) | | Medical | | | | | | | Center | | | | + + + + + + + | MUCUS.URINE | 2024-12-22 | [facility] | >1000 mg/dL | (missing) | (missing) | | SED.ORD | 05:08 | [facility] | | | | | (LPF) | | Medical | | | | | | | Center | | | | + + + + + + + | MUCUS.URINE | 2024-12-22 | [facility] | 1.020 | (missing) | (missing) | | SED.[facility] | 05:08 | [facility] | | | | | (LPF) | | Medical | | | | | | | Center | | | | + + + + + + + | MUCUS.URINE | 2024-12-22 | [facility] | 2 | (missing) | (missing) | | SED.ORD | 05:08 | [facility] | | | | | (LPF) | | Medical | | | | | | | Center | | | | + + + + + + + | MUCUS.URINE | 2024-12-22 | [facility] | 20 mg/dL | (missing) | (missing) | | SED.ORD | 05:08 | [facility] | | | | | (LPF) | | Medical | | | | | | | Center | | | | + + + + + + + | MUCUS.URINE | 2024-12-22 | [facility] | 5.5 | (missing) | (missing) | | SED.ORD | 05:08 | [facility] | | | | | (LPF) | | Medical | | | | | | | Center | | | | + + + + + + + | MUCUS.URINE | 2024-12-22 | [facility] | 51-100 | /hpf | (missing) | | SED.ORD | 05:08 | [facility] | | | | | (LPF) | | Medical | | | | | | | Center | | | | + + + + + + + | MUCUS.URINE | 2024-12-22 | [facility] | Few | /hpf | (missing) | | SED.ORD | 05:08 | [facility] | | | | | (LPF) | | Medical | | | | | | | Center | | | | + + + + + + + | MUCUS.URINE | 2024-12-22 | [facility] | Large | (missing) | (missing) | | SED.ORD | 05:08 | [facility] | | | | | (LPF) | | Medical | | | | | | | Center | | | | + + + + + + + | MUCUS.URINE | 2024-12-22 | [facility] | Negative | (missing) | (missing) | | SED.[facility] | 05:08 | [facility] | | | | | (LPF) | | Medical | | | | | | | Center | | | | + + + + + + + | MUCUS.URINE | 2024-12-22 | [facility] | Normal | (missing) | (missing) | | SED.[facility] | 05:08 | [facility] | | | | | (LPF) | | Medical | | | | | | | Center | | | | + + + + + + + | SARS | 2024-12-22 | [facility] | Not | (missing) | (missing) | | CORONAVIRUS | 05:08 | [facility] | Detected | | | | 2 | | Medical | | | | | RNA.RESP.ORD | | Center | | | | | | | | | | | + + + + + + + | SARS | 2024-12-22 | [facility] | Not | (missing) | SARS-CoV-2, | | CORONAVIRUS | 05:08 | [facility] | Detected | | [facility] | | 2 | | Medical | | | (COVID-19) | | RNA.RESP.ORD | | Center | | | EUA This is | | | | | | | a PCR | | | | | | | performed | | | | | | | test. | | | | | | | Negative | | | | | | | (Not-Detecte | | | | | | | d) results | | | | | | | do not | | | | | | | preclude | | | | | | | COVID-19 | | | | | | | infection | | | | | | | and should | | | | | | | not be used | | | | | | | as the sole | | | | | | | basis for | | | | | | | treatment or | | | | | | | other | | | | | | | patient | | | | | | | management | | | | | | | decisions. | | | | | | | Consider | | | | | | | retesting of | | | | | | | negative | | | | | | | patients if | | | | | | | clinical | | | | | | | features are | | | | | | | suspicious | | | | | | | for COVID-19 | | | | | | | infection, | | | | | | | and other | | | | | | | common | | | | | | | causative | | | | | | | agents have | | | | | | | been ruled | | | | | | | out. | | | | | | | Influenza A | | | | | | | and | | | | | | | Influenza B | | | | | | | negative | | | | | | | results | | | | | | | should be | | | | | | | considered | | | | | | | presumptive | | | | | | | in samples | | | | | | | that have a | | | | | | | positive | | | | | | | SARS-CoV-2 | | | | | | | result. If | | | | | | | co-infection | | | | | | | with | | | | | | | Influenza A | | | | | | | or Influenza | | | | | | | B virus is | | | | | | | suspected in | | | | | | | samples | | | | | | | with a | | | | | | | positive | | | | | | | SARS-CoV-2 | | | | | | | result, the | | | | | | | sample | | | | | | | should be | | | | | | | re-tested | | | | | | | with another | | | | | | | FDA | | | | | | | cleared, | | | | | | | approved, or | | | | | | | authorized | | | | | | | influenza | | | | | | | test, if | | | | | | | influenza | | | | | | | virus | | | | | | | detection | | | | | | | would change | | | | | | | clnical | | | | | | | management. | | | | | | | This | | | | | | | laboratory | | | | | | | is certified | | | | | | | under the | | | | | | | Clinical | | | | | | | Laboratory | | | | | | | Improvement | | | | | | | Amendments | | | | | | | (CLIA) Act, | | | | | | | to perform, | | | | | | | at minimum, | | | | | | | Waived | | | | | | | Testing. | | | | | | | This test's | | | | | | | performance | | | | | | | characterist | | | | | | | ics have | | | | | | | been | | | | | | | verified. | | | | | | | These | | | | | | | results are | | | | | | | not intended | | | | | | | to be used | | | | | | | as the sole | | | | | | | means for | | | | | | | clinical | | | | | | | diagnosis or | | | | | | | patient | | | | | | | management | | | | | | | decisions. | | | | | | | Testing | | | | | | | performed | | | | | | | using the | | | | | | | Ting aldo | | | | | | | CHRIS | | | | | | | SARS-CoV-2 & | | | | | | | Influenza | | | | | | | A/B Assay, | | | | | | | PCR Testing. | | | | | | | | | | | | | | Patients-Ple | | | | | | | ase access | | | | | | | the Ting | | | | | | | aldo CHRIS | | | | | | | SARS-CoV-2 & | | | | | | | Influenza | | | | | | | A/BFDA FACT | | | | | | | sheet at the | | | | | | | following | | | | | | | address: | | | | | | | [email or web address] | | | | | | | [email or web address] | | | | | | | testing | | | | | | | Prov[facility] | | | | | | | ease access | | | | | | | the Ting | | | | | | | aldo CHRIS | | | | | | | SARS-CoV-2 & | | | | | | | Influenza | | | | | | | A/BFDA FACT | | | | | | | Sheet at the | | | | | | | following | | | | | | | web address: | | | | | | | | | | | | | | [email or web address] | | | | | | | [email or web address] | | | | | | | testing | + + + + + + + | [email or web address].URINE | 2024-12-22 | [place] | Rare | /lpf | (missing) | | SED[facility] | 05:08 | [place] | | | | | ([facility]) | | Medical | | | | | | | Center | | | | + + + + + + + | MUCUS.URINE | 2024-12-22 | [facility] | Turbid | (missing) | (missing) | | [facility] | 05:08 | [place] | | | | | ([facility]) | | Medical | | | | | | | Center | | | | + + + + + + + | MUCUS.URINE | 2024-12-22 | [facility] | Yellow | (missing) | (missing) | | [facility] | 05:08 | [facility] [place] | | | | | ([facility]) | | Medical | | | | | | | Center | | | | + + + + + + + + + | Result panel 3 | + + + + + +-------+---------+ + | POC | 2024-12-22 | [facility] | 159 | mg/dl | (missing) | | GLUCOSE.BLD. | 05:09 | [place] | | | | | QN (MG/DL) | | Medical | | | | | | | Center | | | | + + + +-------+---------+ + + + | Result panel 4 | + + + + + + + + + | Tobramycin | 2024-12-22 | [facility] | <=1 | (missing) | (missing) | | | 05:43 | [facility] [place] | | | | | | | Medical | | | | | | | Center | | | | + + + + + + + | Tobramycin | 2024-12-22 | [facility] | 0.25 | (missing) | (missing) | | | 05:43 | [facility] | | | | | | | Medical | | | | | | | Center | | | | + + + + + + + | Tobramycin | 2024-12-22 | [facility] | 1.0 | (missing) | (missing) | | | 05:43 | [facility] [place] | | | | | | | Medical | | | | | | | Center | | | | + + + + + + + | Tobramycin | 2024-12-22 | [facility] | 2.0 | (missing) | (missing) | | | 05:43 | [facility] [place] | | | | | | | Medical | | | | | | | Center | | | | + + + + + + + | CULTURE | 2024-12-22 | [facility] | | (missing) | >=100,000 | | | 05:43 | [place] | [address] | | CFU/ml | | | | Medical | | | Pseudomonas | | | | Center | AERUGIN[facility]A | | aeruginosa | | | | | | | Pseudomonas | | | | | | | aeruginosa | + + + + + + + | Tobramycin | 2024-12-22 | [facility] | | (missing) | >=100,000 | | | 05:43 | [facility] | [address] | | CFU/ml | | | | Medical | | | Pseudomonas | | | | Center | AERUGINOSA | | aeruginosa | | | | | | | Pseudomonas | | | | | | | aeruginosa | + + + + + + + | Tobramycin | 2024-12-22 | [facility] | 4.0 | (missing) | (missing) | | | 05:43 | [facility] | | | | | | | Medical | | | | | | | Center | | | | + + + + + + + | Tobramycin | 2024-12-22 | [facility] | 8 | (missing) | (missing) | | | 05:43 | [facility] [place] | | | | | | | Medical | | | | | | | Center | | | | + + + + + + + + + | Result panel 5 | + + + + + +-------+---------+ + | | 2024-12-22 | [facility] | 1.4 | mg/dl | (missing) | | [email or web address].SE | 05:57 | [facility] [place] | | | | | R/PLAS.QN | | Medical | | | | | (MG/DL) | | Center | | | | + + + +-------+---------+ + + + | Result panel 6 | + + + + + +-------+ + + | | 2024-12-22 | [place] | 3.1 | mmol/l | (missing) | | LACTATE.BLD. | 07:09 | [facility] | | | | | QN | | Medical | | | | | | | Center | | | | + + + +-------+ + + + + | Result panel 7 | + + + + + +--------+---------+ + | | 2024-12-22 | [place] | 6.81 | ng/ml | Clinical | | PROCALCITONI | 07:35 | [facility] | | | Procalcitoni | | N (NG/ML) | | Medical | | | n Bacterial | | | | Center | | | Diagnosis | | | | | | | Result | | | | | | | (ng/ml) | | | | | | | Infection | | | | | | | | | | | | | | | | | | | | | | | | | | | | | | | | | | | | | | | | | | ------ No | | | | | | | active | | | | | | | infection < | | | | | | | or = 0.05 | | | | | | | Very | | | | | | | unlikely | | | | | | | | | | | | | | | | | | | | | | | | | | | | | | | | | | | | | | | | | | ------ COPD | | | | | | | and acute | | | | | | | exacerbation | | | | | | | of chronic | | | | | | | bronchitis | | | | | | | with: - | | | | | | | Comorbidity | | | | | | | (e.g. < 0.1* | | | | | | | Very | | | | | | | unlikely | | | | | | | supplemental | | | | | | | O2, 0.1 - | | | | | | | 0.25* | | | | | | | Possible | | | | | | | heart | | | | | | | failure) - | | | | | | | No | | | | | | | comorbidity | | | | | | | < 0.25 | | | | | | | Unlikely . > | | | | | | | or = 0.25 | | | | | | | Likely | | | | | | | | | | | | | | | | | | | | | | | | | | | | | | | | | | | | | | | | | | ------ Acute | | | | | | | bronchitis | | | | | | | < 0.25 | | | | | | | Unlikely and | | | | | | | no COPD > | | | | | | | or = 0.25 | | | | | | | Likely | | | | | | | | | | | | | | | | | | | | | | | | | | | | | | | | | | | | | | | | | | ------ | | | | | | | Pneumonia < | | | | | | | 0.5 Unlikely | | | | | | | . > or = | | | | | | | 0.5 Likely | | | | | | | | | | | | | | | | | | | | | | | | | | | | | | | | | | | | | | | | | | ----- | | | | | | | Sepsis, | | | | | | | severe < | | | | | | | 0.25 | | | | | | | Unlikely | | | | | | | sepsis, | | | | | | | sepsis with | | | | | | | 0.25 - 0.5 | | | | | | | Possible | | | | | | | septic shock | | | | | | | >0.5 - 1 | | | | | | | Likely . > 1 | | | | | | | Very Likely | | | | | | | NOTE: | | | | | | | Non-infectio | | | | | | | us causes of | | | | | | | an | | | | | | | elevation | | | | | | | in PCT | | | | | | | include: | | | | | | | cardiac | | | | | | | surgery, | | | | | | | acute | | | | | | | myocardial | | | | | | | infarction, | | | | | | | cardiogenic | | | | | | | shock, | | | | | | | porter, and | | | | | | | trauma. | | | | | | | Procalcitoni | | | | | | | n levels as | | | | | | | a guide to | | | | | | | duration of | | | | | | | Antibiotic | | | | | | | therapy for | | | | | | | patients | | | | | | | with | | | | | | | Community-ac | | | | | | | quired | | | | | | | Pneumonia*: | | | | | | | 0.1 - 0.25 | | | | | | | ng/ml: | | | | | | | Literature | | | | | | | supports | | | | | | | stopping | | | | | | | Antibiotic | | | | | | | therapy < | | | | | | | 0.1 ng/ml: | | | | | | | Continuation | | | | | | | of | | | | | | | antibiotic | | | | | | | therapy | | | | | | | strongly | | | | | | | discouraged | | | | | | | *Level | | | | | | | cut-offs are | | | | | | | suggested | | | | | | | guidance. | | | | | | | Clinical | | | | | | | judgement | | | | | | | needed. | | | | | | | *Re-assess | | | | | | | clinically; | | | | | | | re-measure | | | | | | | PCT in few | | | | | | | hours if | | | | | | | suspect | | | | | | | bacterial | | | | | | | infection. | + + + +--------+---------+ + + + | Result panel 8 | + + + + + +-------+---------+ + | POC | 2024-12-22 | [place] | 120 | mg/dl | Glu2: | | GLUCOSE.BLD. | 08:12 | [facility] | | | Follow Order | | QN (MG/DL) | | Medical | | | Set | | | | Center | | | | + + + +-------+---------+ + + + | Result panel 9 | + + + + + +-------+ + + | | 2024-12-22 | [facility] | 2.4 | mmol/l | (missing) | | LACTATE.BLD. | 09:19 | [facility] | | | | | QN | | Medical | | | | | | | Center | | | | + + + +-------+ + + + + | Result panel 10 | + + + + + +-------+ + + | POTASSIUM | 2024-12-22 | [facility] | 3.0 | mmol/l | (missing) | | | 12:00 | [facility] | | | | | | | Medical | | | | | | | Center | | | | + + + +-------+ + + + + | Result panel 11 | + + + + + +-------+ + + | POTASSIUM | 2024-12-22 | [facility] | 4.8 | mmol/l | Clinical | | | 17:58:53 | [facility] | | | indication: | | | | Medical | | | see | | | | Center | | | Potassium | | | | | | | Replacement | | | | | | | Protocol | + + + +-------+ + + + + | Result panel 12 | + + + + + +-------+---------+ + | | 2024-12-22 | [facility] | 1.9 | mg/dl | Clinical | | MAGNESIUM.SE | 17:59:06 | [facility] | | | indication: | | R/PLAS.QN | | Medical | | | see | | (MG/DL) | | Center | | | Magnesium | | | | | | | Replacement | | | | | | | Protocol | + + + +-------+---------+ + + + | Result panel 13 | + + + + + +---------+ + + | | 2024-12-23 | [facility] | 0.0 | per 100 | (missing) | | NRBC.BLD.QN. | 04:00 | [facility] | | [facility] | | | AUTO (K/UL) | | Medical | | | | | | | Center | | | | + + + +---------+ + + | | 2024-12-23 | [facility] | 0.00 | k/ul | (missing) | | NRBC.BLD.QN. | 04:00 | [facility] | | | | | AUTO (K/UL) | | Medical | | | | | | | Center | | | | + + + +---------+ + + | | 2024-12-23 | [facility] | 0.01 | k/ul | (missing) | | NRBC.BLD.QN. | 04:00 | [facility] | | | | | AUTO (K/UL) | | Medical | | | | | | | Center | | | | + + + +---------+ + + | | 2024-12-23 | [facility] | 0.07 | k/ul | (missing) | | NRBC.BLD.QN. | 04:00 | [facility] | | | | | AUTO (K/UL) | | Medical | | | | | | | Center | | | | + + + +---------+ + + | | 2024-12-23 | [facility] | 0.1 | % | (missing) | | NRBC.BLD.QN. | 04:00 | [facility] | | | | | AUTO (K/UL) | | Medical | | | | | | | Center | | | | + + + +---------+ + + | | 2024-12-23 | [facility] | 0.12 | k/ul | (missing) | | NRBC.BLD.QN. | 04:00 | [facility] | | | | | AUTO (K/UL) | | Medical | | | | | | | Center | | | | + + + +---------+ + + | | 2024-12-23 | [facility] | 0.4 | % | (missing) | | NRBC.BLD.QN. | 04:00 | [facility] | | | | | AUTO (K/UL) | | Medical | | | | | | | Center | | | | + + + +---------+ + + | | 2024-12-23 | [facility] | 0.54 | k/ul | (missing) | | NRBC.BLD.QN. | 04:00 | [facility] | | | | | AUTO (K/UL) | | Medical | | | | | | | Center | | | | + + + +---------+ + + | EGFR | 2024-12-23 | [facility] | 0.61 | mg/dl | (missing) | | ML/MIN/1.73 | 04:00 | [facility] | | | | | SQ | | Medical | | | | | M.PREDICTED | | Center | | | | + + + +---------+ + + | | 2024-12-23 | [facility] | 0.7 | % | (missing) | | NRBC.BLD.QN. | 04:00 | [facility] | | | | | AUTO (K/UL) | | Medical | | | | | | | Center | | | | + + + +---------+ + + | | 2024-12-23 | [facility] | 0.76 | k/ul | (missing) | | NRBC.BLD.QN. | 04:00 | [facility] | | | | | AUTO (K/UL) | | Medical | | | | | | | Center | | | | + + + +---------+ + + | EGFR | 2024-12-23 | [facility] | 1.0 | mg/dl | (missing) | | ML/MIN/1.73 | 04:00 | [facility] | | | | | SQ | | Medical | | | | | M.PREDICTED | | Center | | | | + + + +---------+ + + | EGFR | 2024-12-23 | [facility] | 1.1 | (missing) | (missing) | | ML/MIN/1.73 | 04:00 | [facility] | | | | | SQ | | Medical | | | | | M.PREDICTED | | Center | | | | + + + +---------+ + + | | 2024-12-23 | [facility] | 1.5 | mmol/l | (missing) | | LACTATE.BLD. | 04:00 | [facility] | | | | | QN | | Medical | | | | | | | Center | | | | + + + +---------+ + + | | 2024-12-23 | [facility] | 1.8 | mg/dl | (missing) | | MAGNESIUM.SE | 04:00 | [facility] | | | | | R/PLAS.QN | | Medical | | | | | (MG/DL) | | Center | | | | + + + +---------+ + + | EGFR | 2024-12-23 | [facility] | 10 | mmol/l | (missing) | | ML/MIN/1.73 | 04:00 | [facility] | | | | | SQ | | Medical | | | | | M.PREDICTED | | Center | | | | + + + +---------+ + + | | 2024-12-23 | [facility] | 10.7 | g/dl | (missing) | | MPV.BLD.QN.A | 04:00 | [facility] | | | | | [facility] [place] | | Medical | | | | | | | Center | | | | + + + +---------+ + + | | 2024-12-23 | [facility] | 10.7 | g/dl | (missing) | | NRBC.BLD.QN. | 04:00 | [facility] | | | | | AUTO (K/UL) | | Medical | | | | | | | Center | | | | + + + +---------+ + + | EGFR | 2024-12-23 | [facility] | 100 | | GFR value | | ML/MIN/1.73 | 04:00 | [facility] | | ml/min/1.73m | was | | SQ | | Medical | | 2 | calculated | | M.PREDICTED | | Center | | | using a new | | | | | | | GFR equation | | | | | | | effective | | | | | | | since | | | | | | | 05/16/21. | | | | | | | This is a | | | | | | | recommendati | | | | | | | on of the | | | | | | | [place] | | | | | | | Society of | | | | | | | Nephrology | | | | | | | and National | | | | | | | Kidney | | | | | | | Foundation. | | | | | | | Clinical | | | | | | | practice | | | | | | | guidelines | | | | | | | suggest the | | | | | | | use of serum | | | | | | | cystatin C | | | | | | | as a | | | | | | | confirmatory | | | | | | | test for | | | | | | | eGFR 45-59 | | | | | | | ml/min/1.73m | | | | | | | 2 in adults | | | | | | | who do not | | | | | | | have markers | | | | | | | of kidney | | | | | | | disease; | | | | | | | eGFR may be | | | | | | | less | | | | | | | accurate in | | | | | | | this range. | + + + +---------+ + + | EGFR | 2024-12-23 | [place] | 105 | mmol/l | (missing) | | ML/MIN/1.73 | 04:00 | [facility] | | | | | SQ | | Medical | | | | | M.PREDICTED | | Center | | | | + + + +---------+ + + | EGFR | 2024-12-23 | [facility] | 106 | u/l | (missing) | | ML/MIN/1.73 | 04:00 | [facility] | | | | | SQ | | Medical | | | | | M.PREDICTED | | Center | | | | + + + +---------+ + + | EGFR | 2024-12-23 | [facility] | 128 | mg/dl | Diagnostic | | ML/MIN/1.73 | 04:00 | [facility] | | | Categories | | SQ | | Medical | | | (per ADA): | | M.PREDICTED | | Center | | | Fasting: < | | | | | | | 100 mg/dL = | | | | | | | Normal 100 | | | | | | | to 125 mg/dL | | | | | | | = IFG | | | | | | | (Impaired | | | | | | | Fasting | | | | | | | Glucose) >/= | | | | | | | 126 mg/dL = | | | | | | | Diagnosis | | | | | | | of | | | | | | | Diabetes.* 2 | | | | | | | Hr OGTT: < | | | | | | | 140 mg/dL = | | | | | | | Normal 140 | | | | | | | to 199 mg/dL | | | | | | | = IGT | | | | | | | (Impaired | | | | | | | Glucose | | | | | | | Tolerance) | | | | | | | >/= 200 | | | | | | | mg/dL = | | | | | | | Diagnosis of | | | | | | | Diabetes.* | | | | | | | * In the | | | | | | | absence of | | | | | | | unequivocal | | | | | | | hyperglycemi | | | | | | | a, results | | | | | | | should be | | | | | | | confirmed by | | | | | | | repeat | | | | | | | testing. In | | | | | | | Pediatric | | | | | | | patients, | | | | | | | type 1 | | | | | | | diabetes is | | | | | | | more common | | | | | | | and may | | | | | | | warrant more | | | | | | | immediate | | | | | | | attention. | + + + +---------+ + + | EGFR | 2024-12-23 | [facility] | 13 | mg/dl | (missing) | | ML/MIN/1.73 | 04:00 | [facility] | | | | | SQ | | Medical | | | | | M.PREDICTED | | Center | | | | + + + +---------+ + + | | 2024-12-23 | [facility] | 13.5 | % | (missing) | | MPV.BLD.QN.A | 04:00 | [facility] | | | | | [facility] [place] | | Medical | | | | | | | Center | | | | + + + +---------+ + + | | 2024-12-23 | [facility] | 13.5 | % | (missing) | | NRBC.BLD.QN. | 04:00 | [facility] | | | | | AUTO (K/UL) | | Medical | | | | | | | Center | | | | + + + +---------+ + + | EGFR | 2024-12-23 | [facility] | 137 | mmol/l | (missing) | | ML/MIN/1.73 | 04:00 | [facility] | | | | | SQ | | Medical | | | | | M.PREDICTED | | Center | | | | + + + +---------+ + + | | 2024-12-23 | [facility] | 16.63 | k/ul | (missing) | | NRBC.BLD.QN. | 04:00 | [facility] | | | | | AUTO (K/UL) | | Medical | | | | | | | Center | | | | + + + +---------+ + + | | 2024-12-23 | [facility] | 18.13 | k/ul | (missing) | | MPV.BLD.QN.A | 04:00 | [facility] | | | | | [facility] [place] | | Medical | | | | | | | Center | | | | + + + +---------+ + + | | 2024-12-23 | [facility] | 18.13 | k/ul | (missing) | | NRBC.BLD.QN. | 04:00 | [facility] | | | | | AUTO (K/UL) | | Medical | | | | | | | Center | | | | + + + +---------+ + + | | 2024-12-23 | [facility] | 2.6 | mg/dl | (missing) | | PHOSPHORUS.S | 04:00 | [facility] | | | | | ER/PLAS.QN | | Medical | | | | | (MG/DL) | | Center | | | | + + + +---------+ + + | EGFR | 2024-12-23 | [facility] | 2.7 | g/dl | (missing) | | ML/MIN/1.73 | 04:00 | [facility] | | | | | SQ | | Medical | | | | | M.PREDICTED | | Center | | | | + + + +---------+ + + | EGFR | 2024-12-23 | [facility] | 21 | u/l | (missing) | | ML/MIN/1.73 | 04:00 | [facility] | | | | | SQ | | Medical | | | | | M.PREDICTED | | Center | | | | + + + +---------+ + + | EGFR | 2024-12-23 | [facility] | 21.3 | (missing) | (missing) | | ML/MIN/1.73 | 04:00 | [facility] | | | | | SQ | | Medical | | | | | M.PREDICTED | | Center | | | | + + + +---------+ + + | EGFR | 2024-12-23 | [facility] | 22 | mmol/l | (missing) | | ML/MIN/1.73 | 04:00 | [facility] | | | | | SQ | | Medical | | | | | M.PREDICTED | | Center | | | | + + + +---------+ + + | | 2024-12-23 | [facility] | 220 | k/ul | (missing) | | MPV.BLD.QN.A | 04:00 | [facility] | | | | | [facility] [place] | | Medical | | | | | | | Center | | | | + + + +---------+ + + | | 2024-12-23 | [facility] | 220 | k/ul | (missing) | | NRBC.BLD.QN. | 04:00 | [facility] | | | | | AUTO (K/UL) | | Medical | | | | | | | Center | | | | + + + +---------+ + + | EGFR | 2024-12-23 | [facility] | 23 | u/l | (missing) | | ML/MIN/1.73 | 04:00 | [facility] | | | | | SQ | | Medical | | | | | M.PREDICTED | | Center | | | | + + + +---------+ + + | | 2024-12-23 | [facility] | 29.2 | pg | (missing) | | MPV.BLD.QN.A | 04:00 | [facility] | | | | | [facility] [place] | | Medical | | | | | | | Center | | | | + + + +---------+ + + | | 2024-12-23 | [facility] | 29.2 | pg | (missing) | | NRBC.CALIXTOD.QN. | 04:00 | [facility] | | | | | AUTO (K/UL) | | Medical | | | | | | | Center | | | | + + + +---------+ + + | | 2024-12-23 | [facility] | 3.0 | % | (missing) | | NRBC.CALIXTOD.QN. | 04:00 | [facility] | | | | | AUTO (K/UL) | | Medical | | | | | | | Center | | | | + + + +---------+ + + | EGFR | 2024-12-23 | [facility] | 3.0 | g/dl | (missing) | | ML/MIN/1.73 | 04:00 | [facility] | | | | | SQ | | Medical | | | | | M.PREDICTED | | Center | | | | + + + +---------+ + + | | 2024-12-23 | [facility] | 3.67 | m/ul | (missing) | | MPV.BLD.QN.A | 04:00 | [facility] | | | | | [facility] [place] | | Medical | | | | | | | Center | | | | + + + +---------+ + + | | 2024-12-23 | [facility] | 3.67 | m/ul | (missing) | | NRBC.BLD.QN. | 04:00 | [facility] | | | | | AUTO (K/UL) | | Medical | | | | | | | Center | | | | + + + +---------+ + + | EGFR | 2024-12-23 | [facility] | 3.7 | mmol/l | (missing) | | ML/MIN/1.73 | 04:00 | [facility] | | | | | SQ | | Medical | | | | | M.PREDICTED | | Center | | | | + + + +---------+ + + | | 2024-12-23 | [facility] | 32.4 | % | (missing) | | MPV.BLD.QN.A | 04:00 | [facility] | | | | | [facility] [place] | | Medical | | | | | | | Center | | | | + + + +---------+ + + | | 2024-12-23 | [facility] | 32.4 | % | (missing) | | NRBC.BLD.QN. | 04:00 | [facility] | | | | | AUTO (K/UL) | | Medical | | | | | | | Center | | | | + + + +---------+ + + | | 2024-12-23 | [facility] | 33.0 | g/dl | (missing) | | MPV.BLD.QN.A | 04:00 | [facility] | | | | | [facility] [place] | | Medical | | | | | | | Center | | | | + + + +---------+ + + | | 2024-12-23 | [facility] | 33.0 | g/dl | (missing) | | NRBC.BLD.QN. | 04:00 | [facility] | | | | | AUTO (K/UL) | | Medical | | | | | | | Center | | | | + + + +---------+ + + | | 2024-12-23 | [facility] | 4.2 | % | (missing) | | NRBC.BLD.QN. | 04:00 | [facility] | | | | | AUTO (K/UL) | | Medical | | | | | | | Center | | | | + + + +---------+ + + | | 2024-12-23 | [facility] | 43.7 | fl | (missing) | | MPV.BLD.QN.A | 04:00 | [facility] | | | | | [facility] [place] | | Medical | | | | | | | Center | | | | + + + +---------+ + + | | 2024-12-23 | [facility] | 43.7 | fl | (missing) | | NRBC.BLD.QN. | 04:00 | [facility] | | | | | AUTO (K/UL) | | Medical | | | | | | | Center | | | | + + + +---------+ + + | EGFR | 2024-12-23 | [facility] | 5.7 | g/dl | (missing) | | ML/MIN/1.73 | 04:00 | [facility] | | | | | SQ | | Medical | | | | | M.PREDICTED | | Center | | | | + + + +---------+ + + | EGFR | 2024-12-23 | [facility] | 8.3 | mg/dl | (missing) | | ML/MIN/1.73 | 04:00 | [facility] | | | | | SQ | | Medical | | | | | M.PREDICTED | | Center | | | | + + + +---------+ + + | | 2024-12-23 | [facility] | 88.3 | fl | (missing) | | MPV.BLD.QN.A | 04:00 | [facility] | | | | | [facility] [place] | | Medical | | | | | | | Center | | | | + + + +---------+ + + | | 2024-12-23 | [facility] | 88.3 | fl | (missing) | | NRBC.BLD.QN. | 04:00 | [facility] | | | | | AUTO (K/UL) | | Medical | | | | | | | Center | | | | + + + +---------+ + + | | 2024-12-23 | [facility] | 9.3 | fl | (missing) | | MPV.BLD.QN.A | 04:00 | [facility] | | | | | [facility] [place] | | Medical | | | | | | | Center | | | | + + + +---------+ + + | | 2024-12-23 | [facility] | 9.3 | fl | (missing) | | NRBC.BLD.QN. | 04:00 | [facility] | | | | | AUTO (K/UL) | | Medical | | | | | | | Center | | | | + + + +---------+ + + | | 2024-12-23 | [facility] | 91.6 | % | (missing) | | NRBC.BLD.QN. | 04:00 | [facility] | | | | | AUTO (K/UL) | | Medical | | | | | | | Center | | | | + + + +---------+ + + + + | Result panel 14 | + + + + + + + + + | | 2024-12-24 | [facility] | 0.0 | per 100 | (missing) | | NRBC.BLD.QN. | 04:00 | [facility] | | [facility] | | | AUTO (K/UL) | | Medical | | | | | | | Center | | | | + + + + + + + | | 2024-12-24 | [facility] | 0.00 | k/ul | (missing) | | NRBC.BLD.QN. | 04:00 | [facility] | | | | | AUTO (K/UL) | | Medical | | | | | | | Center | | | | + + + + + + + | | 2024-12-24 | [facility] | 0.03 | k/ul | (missing) | | NRBC.BLD.QN. | 04:00 | [facility] | | | | | AUTO (K/UL) | | Medical | | | | | | | Center | | | | + + + + + + + | | 2024-12-24 | [facility] | 0.05 | k/ul | (missing) | | NRBC.BLD.QN. | 04:00 | [facility] | | | | | AUTO (K/UL) | | Medical | | | | | | | Center | | | | + + + + + + + | | 2024-12-24 | [facility] | 0.08 | k/ul | (missing) | | NRBC.BLD.QN. | 04:00 | [facility] | | | | | AUTO (K/UL) | | Medical | | | | | | | Center | | | | + + + + + + + | | 2024-12-24 | [facility] | 0.4 | % | (missing) | | NRBC.BLD.QN. | 04:00 | [facility] | | | | | AUTO (K/UL) | | Medical | | | | | | | Center | | | | + + + + + + + | | 2024-12-24 | [facility] | 0.44 | k/ul | (missing) | | NRBC.BLD.QN. | 04:00 | [facility] | | | | | AUTO (K/UL) | | Medical | | | | | | | Center | | | | + + + + + + + | EGFR | 2024-12-24 | [facility] | 0.52 | mg/dl | (missing) | | ML/MIN/1.73 | 04:00 | [facility] | | | | | SQ | | Medical | | | | | M.PREDICTED | | Center | | | | + + + + + + + | | 2024-12-24 | [facility] | 0.58 | k/ul | (missing) | | NRBC.BLD.QN. | 04:00 | [facility] | | | | | AUTO (K/UL) | | Medical | | | | | | | Center | | | | + + + + + + + | | 2024-12-24 | [facility] | 0.6 | % | (missing) | | NRBC.BLD.QN. | 04:00 | [facility] | | | | | AUTO (K/UL) | | Medical | | | | | | | Center | | | | + + + + + + + | | 2024-12-24 | [facility] | 1.0 | % | (missing) | | NRBC.BLD.QN. | 04:00 | [facility] | | | | | AUTO (K/UL) | | Medical | | | | | | | Center | | | | + + + + + + + | EGFR | 2024-12-24 | [facility] | 10 | mmol/l | (missing) | | ML/MIN/1.73 | 04:00 | [facility] | | | | | SQ | | Medical | | | | | M.PREDICTED | | Center | | | | + + + + + + + | | 2024-12-24 | [facility] | 10.2 | g/dl | (missing) | | NRBC.BLD.QN. | 04:00 | [facility] | | | | | AUTO (K/UL) | | Medical | | | | | | | Center | | | | + + + + + + + | EGFR | 2024-12-24 | [facility] | 101 | mmol/l | (missing) | | ML/MIN/1.73 | 04:00 | [facility] | | | | | SQ | | Medical | | | | | M.PREDICTED | | Center | | | | + + + + + + + | EGFR | 2024-12-24 | [facility] | 104 | mg/dl | Diagnostic | | ML/MIN/1.73 | 04:00 | [facility] | | | Categories | | SQ | | Medical | | | (per ADA): | | M.PREDICTED | | Center | | | Fasting: < | | | | | | | 100 mg/dL = | | | | | | | Normal 100 | | | | | | | to 125 mg/dL | | | | | | | = IFG | | | | | | | (Impaired | | | | | | | Fasting | | | | | | | Glucose) >/= | | | | | | | 126 mg/dL = | | | | | | | Diagnosis | | | | | | | of | | | | | | | Diabetes.* 2 | | | | | | | Hr OGTT: < | | | | | | | 140 mg/dL = | | | | | | | Normal 140 | | | | | | | to 199 mg/dL | | | | | | | = IGT | | | | | | | (Impaired | | | | | | | Glucose | | | | | | | Tolerance) | | | | | | | >/= 200 | | | | | | | mg/dL = | | | | | | | Diagnosis of | | | | | | | Diabetes.* | | | | | | | * In the | | | | | | | absence of | | | | | | | unequivocal | | | | | | | hyperglycemi | | | | | | | a, results | | | | | | | should be | | | | | | | confirmed by | | | | | | | repeat | | | | | | | testing. In | | | | | | | Pediatric | | | | | | | patients, | | | | | | | type 1 | | | | | | | diabetes is | | | | | | | more common | | | | | | | and may | | | | | | | warrant more | | | | | | | immediate | | | | | | | attention. | + + + + + + + | EGFR | 2024-12-24 | [place] | 104 | | GFR value | | ML/MIN/1.73 | 04:00 | [place] | | ml/min/1.73m | was | | SQ | | Medical | | 2 | calculated | | M.PREDICTED | | Center | | | using a new | | | | | | | GFR equation | | | | | | | effective | | | | | | | since | | | | | | | 05/16/21. | | | | | | | This is a | | | | | | | recommendati | | | | | | | on of the | | | | | | | [place] | | | | | | | Society of | | | | | | | Nephrology | | | | | | | and National | | | | | | | Kidney | | | | | | | Foundation. | | | | | | | Clinical | | | | | | | practice | | | | | | | guidelines | | | | | | | suggest the | | | | | | | use of serum | | | | | | | cystatin C | | | | | | | as a | | | | | | | confirmatory | | | | | | | test for | | | | | | | eGFR 45-59 | | | | | | | ml/min/1.73m | | | | | | | 2 in adults | | | | | | | who do not | | | | | | | have markers | | | | | | | of kidney | | | | | | | disease; | | | | | | | eGFR may be | | | | | | | less | | | | | | | accurate in | | | | | | | this range. | + + + + + + + | EGFR | 2024-12-24 | [place] | 12 | mg/dl | (missing) | | ML/MIN/1.73 | 04:00 | [facility] [place] | | | | | SQ | | Medical | | | | | M.PREDICTED | | Center | | | | + + + + + + + | | 2024-12-24 | [place] | 13.5 | % | (missing) | | NRBC.BLD.QN. | 04:00 | [facility] [place] | | | | | AUTO (K/UL) | | Medical | | | | | | | Center | | | | + + + + + + + | EGFR | 2024-12-24 | [place] | 135 | mmol/l | Add to | | ML/MIN/1.73 | 04:00 | [place] | | | blood in lab | | SQ | | Medical | | | only if not | | M.PREDICTED | | Center | | | done on | | | | | | | admission. | + + + + + + + | | 2024-12-24 | [place] | 162 | k/ul | (missing) | | NRBC.BLD.QN. | 04:00 | [facility] [place] | | | | | AUTO (K/UL) | | Medical | | | | | | | Center | | | | + + + + + + + | | 2024-12-24 | [place] | 2.73 | ng/ml | Clinical | | PROCALCITONI | 04:00 | [facility] [place] | | | Procalcitoni | | N (NG/ML) | | Medical | | | n Bacterial | | | | Center | | | Diagnosis | | | | | | | Result | | | | | | | (ng/ml) | | | | | | | Infection | | | | | | | | | | | | | | | | | | | | | | | | | | | | | | | | | | | | | | | | | | ------ No | | | | | | | active | | | | | | | infection < | | | | | | | or = 0.05 | | | | | | | Very | | | | | | | unlikely | | | | | | | | | | | | | | | | | | | | | | | | | | | | | | | | | | | | | | | | | | ------ COPD | | | | | | | and acute | | | | | | | exacerbation | | | | | | | of chronic | | | | | | | bronchitis | | | | | | | with: - | | | | | | | Comorbidity | | | | | | | (e.g. < 0.1* | | | | | | | Very | | | | | | | unlikely | | | | | | | supplemental | | | | | | | O2, 0.1 - | | | | | | | 0.25* | | | | | | | Possible | | | | | | | heart | | | | | | | failure) - | | | | | | | No | | | | | | | comorbidity | | | | | | | < 0.25 | | | | | | | Unlikely . > | | | | | | | or = 0.25 | | | | | | | Likely | | | | | | | | | | | | | | | | | | | | | | | | | | | | | | | | | | | | | | | | | | ------ Acute | | | | | | | bronchitis | | | | | | | < 0.25 | | | | | | | Unlikely and | | | | | | | no COPD > | | | | | | | or = 0.25 | | | | | | | Likely | | | | | | | | | | | | | | | | | | | | | | | | | | | | | | | | | | | | | | | | | | ------ | | | | | | | Pneumonia < | | | | | | | 0.5 Unlikely | | | | | | | . > or = | | | | | | | 0.5 Likely | | | | | | | | | | | | | | | | | | | | | | | | | | | | | | | | | | | | | | | | | | ----- | | | | | | | Sepsis, | | | | | | | severe < | | | | | | | 0.25 | | | | | | | Unlikely | | | | | | | sepsis, | | | | | | | sepsis with | | | | | | | 0.25 - 0.5 | | | | | | | Possible | | | | | | | septic shock | | | | | | | >0.5 - 1 | | | | | | | Likely . > 1 | | | | | | | Very Likely | | | | | | | NOTE: | | | | | | | Non-infectio | | | | | | | us causes of | | | | | | | an | | | | | | | elevation | | | | | | | in PCT | | | | | | | include: | | | | | | | cardiac | | | | | | | surgery, | | | | | | | acute | | | | | | | myocardial | | | | | | | infarction, | | | | | | | cardiogenic | | | | | | | shock, | | | | | | | porter, and | | | | | | | trauma. | | | | | | | Procalcitoni | | | | | | | n levels as | | | | | | | a guide to | | | | | | | duration of | | | | | | | Antibiotic | | | | | | | therapy for | | | | | | | patients | | | | | | | with | | | | | | | Community-ac | | | | | | | quired | | | | | | | Pneumonia*: | | | | | | | 0.1 - 0.25 | | | | | | | ng/ml: | | | | | | | Literature | | | | | | | supports | | | | | | | stopping | | | | | | | Antibiotic | | | | | | | therapy < | | | | | | | 0.1 ng/ml: | | | | | | | Continuation | | | | | | | of | | | | | | | antibiotic | | | | | | | therapy | | | | | | | strongly | | | | | | | discouraged | | | | | | | *Level | | | | | | | cut-offs are | | | | | | | suggested | | | | | | | guidance. | | | | | | | Clinical | | | | | | | judgement | | | | | | | needed. | | | | | | | *Re-assess | | | | | | | clinically; | | | | | | | re-measure | | | | | | | PCT in few | | | | | | | hours if | | | | | | | suspect | | | | | | | bacterial | | | | | | | infection. | + + + + + + + | EGFR | 2024-12-24 | [place] | 23.1 | (missing) | (missing) | | ML/MIN/1.73 | 04:00 | [facility] | | | | | SQ | | Medical | | | | | M.PREDICTED | | Center | | | | + + + + + + + | EGFR | 2024-12-24 | [place] | 24 | mmol/l | (missing) | | ML/MIN/1.73 | 04:00 | [facility] | | | | | SQ | | Medical | | | | | M.PREDICTED | | Center | | | | + + + + + + + | | 2024-12-24 | [place] | 29.1 | pg | (missing) | | NRBC.BLD.QN. | 04:00 | [facility] | | | | | AUTO (K/UL) | | Medical | | | | | | | Center | | | | + + + + + + + | EGFR | 2024-12-24 | [place] | 3.3 | mmol/l | (missing) | | ML/MIN/1.73 | 04:00 | [facility] | | | | | SQ | | Medical | | | | | M.PREDICTED | | Center | | | | + + + + + + + | | 2024-12-24 | [place] | 3.51 | m/ul | (missing) | | NRBC.BLD.QN. | 04:00 | [facility] | | | | | AUTO (K/UL) | | Medical | | | | | | | Center | | | | + + + + + + + | | 2024-12-24 | [place] | 30.7 | % | (missing) | | NRBC.BLD.QN. | 04:00 | [facility] | | | | | AUTO (K/UL) | | Medical | | | | | | | Center | | | | + + + + + + + | | 2024-12-24 | [place] | 33.2 | g/dl | (missing) | | NRBC.BLD.QN. | 04:00 | [facility] | | | | | AUTO (K/UL) | | Medical | | | | | | | Center | | | | + + + + + + + | | 2024-12-24 | [place] | 42.3 | fl | (missing) | | NRBC.BLD.QN. | 04:00 | [facility] | | | | | AUTO (K/UL) | | Medical | | | | | | | Center | | | | + + + + + + + | | 2024-12-24 | [place] | 5.3 | % | (missing) | | NRBC.BLD.QN. | 04:00 | [facility] | | | | | AUTO (K/UL) | | Medical | | | | | | | Center | | | | + + + + + + + | | 2024-12-24 | [place] | 7.0 | % | (missing) | | NRBC.BLD.QN. | 04:00 | [facility] | | | | | AUTO (K/UL) | | Medical | | | | | | | Center | | | | + + + + + + + | | 2024-12-24 | [place] | 7.14 | k/ul | (missing) | | NRBC.BLD.QN. | 04:00 | [facility] | | | | | AUTO (K/UL) | | Medical | | | | | | | Center | | | | + + + + + + + | | 2024-12-24 | [place] | 8.32 | k/ul | (missing) | | NRBC.BLD.QN. | 04:00 | [facility] | | | | | AUTO (K/UL) | | Medical | | | | | | | Center | | | | + + + + + + + | EGFR | 2024-12-24 | [place] | 8.5 | mg/dl | (missing) | | ML/MIN/1.73 | 04:00 | [facility] | | | | | SQ | | Medical | | | | | M.PREDICTED | | Center | | | | + + + + + + + | | 2024-12-24 | [place] | 85.7 | % | (missing) | | NRBC.BLD.QN. | 04:00 | [facility] | | | | | AUTO (K/UL) | | Medical | | | | | | | Center | | | | + + + + + + + | | 2024-12-24 | [place] | 87.5 | fl | (missing) | | NRBC.BLD.QN. | 04:00 | [facility] | | | | | AUTO (K/UL) | | Medical | | | | | | | Center | | | | + + + + + + + | | 2024-12-24 | [place] | 9.4 | fl | (missing) | | NRBC.BLD.QN. | 04:00 | [facility] | | | | | AUTO (K/UL) | | Medical | | | | | | | Center | | | | + + + + + + + | CULTURE | 2024-12-24 | [place] | No Growth | (missing) | (missing) | | | 04:00 | [facility] | | | | | | | Medical | | | | | | | Center | | | | + + + + + + + | CULTURE | 2024-12-24 | [place] | No growth | (missing) | (missing) | | | 04:00 | [facility] | to date | | | | | | Medical | | | | | | | Center | | | | + + + + + + + + + | Result panel 15 | + + + + + +--------+ + + | EGFR | 2024-12-24 | [place] | 0.70 | mg/dl | (missing) | | ML/MIN/1.73 | 17:13 | [facility] | | | | | SQ | | Medical | | | | | M.PREDICTED | | Center | | | | + + + +--------+ + + | | 2024-12-24 | [place] | 1.8 | mg/dl | (missing) | | MAGNESIUM.SE | 17:13 | [facility] | | | | | R/PLAS.QN | | Medical | | | | | (MG/DL) | | Center | | | | + + + +--------+ + + | EGFR | 2024-12-24 | [place] | 102 | mmol/l | (missing) | | ML/MIN/1.73 | 17:13 | [facility] | | | | | SQ | | Medical | | | | | M.PREDICTED | | Center | | | | + + + +--------+ + + | EGFR | 2024-12-24 | [place] | 11 | mg/dl | (missing) | | ML/MIN/1.73 | 17:13 | [facility] | | | | | SQ | | Medical | | | | | M.PREDICTED | | Center | | | | + + + +--------+ + + | EGFR | 2024-12-24 | [place] | 117 | mg/dl | Diagnostic | | ML/MIN/1.73 | 17:13 | [facility] | | | Categories | | SQ | | Medical | | | (per ADA): | | M.PREDICTED | | Center | | | Fasting: < | | | | | | | 100 mg/dL = | | | | | | | Normal 100 | | | | | | | to 125 mg/dL | | | | | | | = IFG | | | | | | | (Impaired | | | | | | | Fasting | | | | | | | Glucose) >/= | | | | | | | 126 mg/dL = | | | | | | | Diagnosis | | | | | | | of | | | | | | | Diabetes.* 2 | | | | | | | Hr OGTT: < | | | | | | | 140 mg/dL = | | | | | | | Normal 140 | | | | | | | to 199 mg/dL | | | | | | | = IGT | | | | | | | (Impaired | | | | | | | Glucose | | | | | | | Tolerance) | | | | | | | >/= 200 | | | | | | | mg/dL = | | | | | | | Diagnosis of | | | | | | | Diabetes.* | | | | | | | * In the | | | | | | | absence of | | | | | | | unequivocal | | | | | | | hyperglycemi | | | | | | | a, results | | | | | | | should be | | | | | | | confirmed by | | | | | | | repeat | | | | | | | testing. In | | | | | | | Pediatric | | | | | | | patients, | | | | | | | type 1 | | | | | | | diabetes is | | | | | | | more common | | | | | | | and may | | | | | | | warrant more | | | | | | | immediate | | | | | | | attention. | + + + +--------+ + + | EGFR | 2024-12-24 | [place] | 137 | mmol/l | (missing) | | ML/MIN/1.73 | 17:13 | [facility] | | | | | SQ | | Medical | | | | | M.PREDICTED | | Center | | | | + + + +--------+ + + | EGFR | 2024-12-24 | [place] | 15.7 | (missing) | (missing) | | ML/MIN/1.73 | 17:13 | [facility] | | | | | SQ | | Medical | | | | | M.PREDICTED | | Center | | | | + + + +--------+ + + | EGFR | 2024-12-24 | [place] | 26 | mmol/l | (missing) | | ML/MIN/1.73 | 17:13 | [facility] | | | | | SQ | | Medical | | | | | M.PREDICTED | | Center | | | | + + + +--------+ + + | EGFR | 2024-12-24 | [place] | 3.4 | mmol/l | (missing) | | ML/MIN/1.73 | 17:13 | [facility] | | | | | SQ | | Medical | | | | | M.PREDICTED | | Center | | | | + + + +--------+ + + | EGFR | 2024-12-24 | [place] | 9 | mmol/l | (missing) | | ML/MIN/1.73 | 17:13 | [facility] | | | | | SQ | | Medical | | | | | M.PREDICTED | | Center | | | | + + + +--------+ + + | EGFR | 2024-12-24 | [place] | 9.2 | mg/dl | (missing) | | ML/MIN/1.73 | 17:13 | [facility] | | | | | SQ | | Medical | | | | | M.PREDICTED | | Center | | | | + + + +--------+ + + | EGFR | 2024-12-24 | [place] | 95 | | GFR value | | ML/MIN/1.73 | 17:13 | [facility] | | ml/min/1.73m | was | | SQ | | Medical | | 2 | calculated | | M.PREDICTED | | Center | | | using a new | | | | | | | GFR equation | | | | | | | effective | | | | | | | since | | | | | | | 05/16/21. | | | | | | | This is a | | | | | | | recommendati | | | | | | | on of the | | | | | | | [place] | | | | | | | Society of | | | | | | | Nephrology | | | | | | | and National | | | | | | | Kidney | | | | | | | Foundation. | | | | | | | Clinical | | | | | | | practice | | | | | | | guidelines | | | | | | | suggest the | | | | | | | use of serum | | | | | | | cystatin C | | | | | | | as a | | | | | | | confirmatory | | | | | | | test for | | | | | | | eGFR 45-59 | | | | | | | ml/min/1.73m | | | | | | | 2 in adults | | | | | | | who do not | | | | | | | have markers | | | | | | | of kidney | | | | | | | disease; | | | | | | | eGFR may be | | | | | | | less | | | | | | | accurate in | | | | | | | this range. | + + + +--------+ + + + + | Result panel 16 | + + + + + +--------+ + + | | 2024-12-25 | [place] | 0.0 | per 100 | (missing) | | NRBC.BLD.QN. | 04:00 | [facility] | | [facility] | | | AUTO (K/UL) | | Medical | | | | | | | Center | | | | + + + +--------+ + + | | 2024-12-25 | [place] | 0.00 | k/ul | (missing) | | NRBC.BLD.QN. | 04:00 | [facility] | | | | | AUTO (K/UL) | | Medical | | | | | | | Center | | | | + + + +--------+ + + | EGFR | 2024-12-25 | [place] | 0.64 | mg/dl | (missing) | | ML/MIN/1.73 | 04:00 | [facility] | | | | | SQ | | Medical | | | | | M.PREDICTED | | Center | | | | + + + +--------+ + + | | 2024-12-25 | [place] | 1.9 | mg/dl | (missing) | | MAGNESIUM.SE | 04:00 | [facility] | | | | | R/PLAS.QN | | Medical | | | | | (MG/DL) | | Center | | | | + + + +--------+ + + | EGFR | 2024-12-25 | [place] | 101 | mmol/l | (missing) | | ML/MIN/1.73 | 04:00 | [facility] | | | | | SQ | | Medical | | | | | M.PREDICTED | | Center | | | | + + + +--------+ + + | EGFR | 2024-12-25 | [place] | 107 | mg/dl | Diagnostic | | ML/MIN/1.73 | 04:00 | [facility] | | | Categories | | SQ | | Medical | | | (per ADA): | | M.PREDICTED | | Center | | | Fasting: < | | | | | | | 100 mg/dL = | | | | | | | Normal 100 | | | | | | | to 125 mg/dL | | | | | | | = IFG | | | | | | | (Impaired | | | | | | | Fasting | | | | | | | Glucose) >/= | | | | | | | 126 mg/dL = | | | | | | | Diagnosis | | | | | | | of | | | | | | | Diabetes.* 2 | | | | | | | Hr OGTT: < | | | | | | | 140 mg/dL = | | | | | | | Normal 140 | | | | | | | to 199 mg/dL | | | | | | | = IGT | | | | | | | (Impaired | | | | | | | Glucose | | | | | | | Tolerance) | | | | | | | >/= 200 | | | | | | | mg/dL = | | | | | | | Diagnosis of | | | | | | | Diabetes.* | | | | | | | * In the | | | | | | | absence of | | | | | | | unequivocal | | | | | | | hyperglycemi | | | | | | | a, results | | | | | | | should be | | | | | | | confirmed by | | | | | | | repeat | | | | | | | testing. In | | | | | | | Pediatric | | | | | | | patients, | | | | | | | type 1 | | | | | | | diabetes is | | | | | | | more common | | | | | | | and may | | | | | | | warrant more | | | | | | | immediate | | | | | | | attention. | + + + +--------+ + + | EGFR | 2024-12-25 | [place] | 11 | mg/dl | (missing) | | ML/MIN/1.73 | 04:00 | [facility] | | | | | SQ | | Medical | | | | | M.PREDICTED | | Center | | | | + + + +--------+ + + | EGFR | 2024-12-25 | [place] | 11 | mmol/l | (missing) | | ML/MIN/1.73 | 04:00 | [facility] | | | | | SQ | | Medical | | | | | M.PREDICTED | | Center | | | | + + + +--------+ + + | | 2024-12-25 | [place] | 11.3 | g/dl | (missing) | | NRBC.BLD.QN. | 04:00 | [facility] | | | | | AUTO (K/UL) | | Medical | | | | | | | Center | | | | + + + +--------+ + + | | 2024-12-25 | [place] | 13.5 | % | (missing) | | NRBC.BLD.QN. | 04:00 | [facility] | | | | | AUTO (K/UL) | | Medical | | | | | | | Center | | | | + + + +--------+ + + | EGFR | 2024-12-25 | [place] | 137 | mmol/l | (missing) | | ML/MIN/1.73 | 04:00 | [facility] | | | | | SQ | | Medical | | | | | M.PREDICTED | | Center | | | | + + + +--------+ + + | EGFR | 2024-12-25 | [place] | 17.2 | (missing) | (missing) | | ML/MIN/1.73 | 04:00 | [facility] | | | | | SQ | | Medical | | | | | M.PREDICTED | | Center | | | | + + + +--------+ + + | | 2024-12-25 | [place] | 218 | k/ul | (missing) | | NRBC.BLD.QN. | 04:00 | [facility] | | | | | AUTO (K/UL) | | Medical | | | | | | | Center | | | | + + + +--------+ + + | EGFR | 2024-12-25 | [place] | 25 | mmol/l | (missing) | | ML/MIN/ | 04:00 | [facility] | | | | | SQ | | Medical | | | | | M.PREDICTED | | Center | | | | + + + +--------+ + + | | 2024-12-25 | [place] | 29.0 | pg | (missing) | | NRBC.BLD.QN. | 04:00 | [facility] | | | | | AUTO (K/UL) | | Medical | | | | | | | Center | | | | + + + +--------+ + + | EGFR | 2024-12-25 | [place] | 3.7 | mmol/l | (missing) | | ML/MIN/1.73 | 04:00 | [facility] | | | | | SQ | | Medical | | | | | M.PREDICTED | | Center | | | | + + + +--------+ + + | | 2024-12-25 | [place] | 3.90 | m/ul | (missing) | | NRBC.BLD.QN. | 04:00 | [facility] | | | | | AUTO (K/UL) | | Medical | | | | | | | Center | | | | + + + +--------+ + + | | 2024-12-25 | [place] | 33.3 | g/dl | (missing) | | NRBC.BLD.QN. | 04:00 | [facility] | | | | | AUTO (K/UL) | | Medical | | | | | | | Center | | | | + + + +--------+ + + | | 2024-12-25 | [place] | 33.9 | % | (missing) | | NRBC.BLD.QN. | 04:00 | [facility] | | | | | AUTO (K/UL) | | Medical | | | | | | | Center | | | | + + + +--------+ + + | | 2024-12-25 | [place] | 42.3 | fl | (missing) | | NRBC.BLD.QN. | 04:00 | [facility] | | | | | AUTO (K/UL) | | Medical | | | | | | | Center | | | | + + + +--------+ + + | | 2024-12-25 | [place] | 6.41 | k/ul | (missing) | | NRBC.BLD.QN. | 04:00 | [facility] | | | | | AUTO (K/UL) | | Medical | | | | | | | Center | | | | + + + +--------+ + + | EGFR | 2024-12-25 | [place] | 8.9 | mg/dl | (missing) | | ML/MIN/1.73 | 04:00 | [facility] | | | | | SQ | | Medical | | | | | M.PREDICTED | | Center | | | | + + + +--------+ + + | | 2024-12-25 | [place] | 86.9 | fl | (missing) | | NRBC.BLD.QN. | 04:00 | [facility] | | | | | AUTO (K/UL) | | Medical | | | | | | | Center | | | | + + + +--------+ + + | | 2024-12-25 | [place] | 9.8 | fl | (missing) | | NRBC.BLD.QN. | 04:00 | [facility] | | | | | AUTO (K/UL) | | Medical | | | | | | | Center | | | | + + + +--------+ + + | EGFR | 2024-12-25 | [place] | 98 | | GFR value | | ML/MIN/1.73 | 04:00 | [facility] | | ml/min/1.73m | was | | SQ | | Medical | | 2 | calculated | | M.PREDICTED | | Center | | | using a new | | | | | | | GFR equation | | | | | | | effective | | | | | | | since | | | | | | | 05/16/21. | | | | | | | This is a | | | | | | | recommendati | | | | | | | on of the | | | | | | | [place] | | | | | | | Society of | | | | | | | Nephrology | | | | | | | and National | | | | | | | Kidney | | | | | | | Foundation. | | | | | | | Clinical | | | | | | | practice | | | | | | | guidelines | | | | | | | suggest the | | | | | | | use of serum | | | | | | | cystatin C | | | | | | | as a | | | | | | | confirmatory | | | | | | | test for | | | | | | | eGFR 45-59 | | | | | | | ml/min/1.73m | | | | | | | 2 in adults | | | | | | | who do not | | | | | | | have markers | | | | | | | of kidney | | | | | | | disease; | | | | | | | eGFR may be | | | | | | | less | | | | | | | accurate in | | | | | | | this range. | + + + +--------+ + + + + | Result panel 17 | + + + + + +--------+ + + | EGFR | 2024-12-26 | [place] | 0.59 | mg/dl | (missing) | | ML/MIN/1.73 | 04:00 | [facility] | | | | | SQ | | Medical | | | | | M.PREDICTED | | Center | | | | + + + +--------+ + + | | 2024-12-26 | [place] | 1.8 | mg/dl | (missing) | | MAGNESIUM.SE | 04:00 | [facility] | | | | | R/PLAS.QN | | Medical | | | | | (MG/DL) | | Center | | | | + + + +--------+ + + | EGFR | 2024-12-26 | [place] | 100 | mmol/l | (missing) | | ML/MIN/1.73 | 04:00 | [facility] | | | | | SQ | | Medical | | | | | M.PREDICTED | | Center | | | | + + + +--------+ + + | EGFR | 2024-12-26 | [place] | 101 | | GFR value | | ML/MIN/1.73 | 04:00 | [facility] | | ml/min/1.73m | was | | SQ | | Medical | | 2 | calculated | | M.PREDICTED | | Center | | | using a new | | | | | | | GFR equation | | | | | | | effective | | | | | | | since | | | | | | | 05/16/21. | | | | | | | This is a | | | | | | | recommendati | | | | | | | on of the | | | | | | | [place] | | | | | | | Society of | | | | | | | Nephrology | | | | | | | and National | | | | | | | Kidney | | | | | | | Foundation. | | | | | | | Clinical | | | | | | | practice | | | | | | | guidelines | | | | | | | suggest the | | | | | | | use of serum | | | | | | | cystatin C | | | | | | | as a | | | | | | | confirmatory | | | | | | | test for | | | | | | | eGFR 45-59 | | | | | | | ml/min/1.73m | | | | | | | 2 in adults | | | | | | | who do not | | | | | | | have markers | | | | | | | of kidney | | | | | | | disease; | | | | | | | eGFR may be | | | | | | | less | | | | | | | accurate in | | | | | | | this range. | + + + +--------+ + + | EGFR | 2024-12-26 | [place] | 13 | mg/dl | (missing) | | ML/MIN/1.73 | 04:00 | [facility] | | | | | SQ | | Medical | | | | | M.PREDICTED | | Center | | | | + + + +--------+ + + | EGFR | 2024-12-26 | [place] | 136 | mmol/l | (missing) | | ML/MIN/1.73 | 04:00 | [facility] | | | | | SQ | | Medical | | | | | M.PREDICTED | | Center | | | | + + + +--------+ + + | EGFR | 2024-12-26 | [place] | 22.0 | (missing) | (missing) | | ML/MIN/1.73 | 04:00 | [facility] | | | | | SQ | | Medical | | | | | M.PREDICTED | | Center | | | | + + + +--------+ + + | EGFR | 2024-12-26 | [place] | 27 | mmol/l | (missing) | | ML/MIN/1.73 | 04:00 | [facility] | | | | | SQ | | Medical | | | | | M.PREDICTED | | Center | | | | + + + +--------+ + + | EGFR | 2024-12-26 | [place] | 3.6 | mmol/l | (missing) | | ML/MIN/1.73 | 04:00 | [facility] | | | | | SQ | | Medical | | | | | M.PREDICTED | | Center | | | | + + + +--------+ + + | EGFR | 2024-12-26 | [place] | 9 | mmol/l | (missing) | | ML/MIN/1.73 | 04:00 | [facility] | | | | | SQ | | Medical | | | | | M.PREDICTED | | Center | | | | + + + +--------+ + + | EGFR | 2024-12-26 | [place] | 9.2 | mg/dl | (missing) | | ML/MIN/1.73 | 04:00 | [facility] | | | | | SQ | | Medical | | | | | M.PREDICTED | | Center | | | | + + + +--------+ + + | EGFR | 2024-12-26 | [place] | 99 | mg/dl | Diagnostic | | ML/MIN/1.73 | 04:00 | [facility] | | | Categories | | SQ | | Medical | | | (per ADA): | | M.PREDICTED | | Center | | | Fasting: < | | | | | | | 100 mg/dL = | | | | | | | Normal 100 | | | | | | | to 125 mg/dL | | | | | | | = IFG | | | | | | | (Impaired | | | | | | | Fasting | | | | | | | Glucose) >/= | | | | | | | 126 mg/dL = | | | | | | | Diagnosis | | | | | | | of | | | | | | | Diabetes.* 2 | | | | | | | Hr OGTT: < | | | | | | | 140 mg/dL = | | | | | | | Normal 140 | | | | | | | to 199 mg/dL | | | | | | | = IGT | | | | | | | (Impaired | | | | | | | Glucose | | | | | | | Tolerance) | | | | | | | >/= 200 | | | | | | | mg/dL = | | | | | | | Diagnosis of | | | | | | | Diabetes.* | | | | | | | * In the | | | | | | | absence of | | | | | | | unequivocal | | | | | | | hyperglycemi | | | | | | | a, results | | | | | | | should be | | | | | | | confirmed by | | | | | | | repeat | | | | | | | testing. In | | | | | | | Pediatric | | | | | | | patients, | | | | | | | type 1 | | | | | | | diabetes is | | | | | | | more common | | | | | | | and may | | | | | | | warrant more | | | | | | | immediate | | | | | | | attention. | + + + +--------+ + + + + | Result panel 18 | + + + + + +--------+ + + | EGFR | 2024-12-28 | [place] | 0.63 | mg/dl | (missing) | | ML/MIN/1.73 | 04:00 | [facility] | | | | | SQ | | Medical | | | | | M.PREDICTED | | Center | | | | + + + +--------+ + + | EGFR | 2024-12-28 | [place] | 100 | mmol/l | (missing) | | ML/MIN/1.73 | 04:00 | [facility] | | | | | SQ | | Medical | | | | | M.PREDICTED | | Center | | | | + + + +--------+ + + | EGFR | 2024-12-28 | [place] | 101 | mg/dl | Diagnostic | | ML/MIN/1.73 | 04:00 | [facility] | | | Categories | | SQ | | Medical | | | (per ADA): | | M.PREDICTED | | Center | | | Fasting: < | | | | | | | 100 mg/dL = | | | | | | | Normal 100 | | | | | | | to 125 mg/dL | | | | | | | = IFG | | | | | | | (Impaired | | | | | | | Fasting | | | | | | | Glucose) >/= | | | | | | | 126 mg/dL = | | | | | | | Diagnosis | | | | | | | of | | | | | | | Diabetes.* 2 | | | | | | | Hr OGTT: < | | | | | | | 140 mg/dL = | | | | | | | Normal 140 | | | | | | | to 199 mg/dL | | | | | | | = IGT | | | | | | | (Impaired | | | | | | | Glucose | | | | | | | Tolerance) | | | | | | | >/= 200 | | | | | | | mg/dL = | | | | | | | Diagnosis of | | | | | | | Diabetes.* | | | | | | | * In the | | | | | | | absence of | | | | | | | unequivocal | | | | | | | hyperglycemi | | | | | | | a, results | | | | | | | should be | | | | | | | confirmed by | | | | | | | repeat | | | | | | | testing. In | | | | | | | Pediatric | | | | | | | patients, | | | | | | | type 1 | | | | | | | diabetes is | | | | | | | more common | | | | | | | and may | | | | | | | warrant more | | | | | | | immediate | | | | | | | attention. | + + + +--------+ + + | EGFR | 2024-12-28 | [place] | 133 | mmol/l | (missing) | | ML/MIN/1.73 | 04:00 | [place] | | | | | SQ | | Medical | | | | | M.PREDICTED | | Center | | | | + + + +--------+ + + | | 2024-12-28 | [place] | 2.0 | mg/dl | (missing) | | MAGNESIUM.SE | 04:00 | [place] | | | | | R/PLAS.QN | | Medical | | | | | (MG/DL) | | Center | | | | + + + +--------+ + + | EGFR | 2024-12-28 | [place] | 20 | mg/dl | (missing) | | ML/MIN/1.73 | 04:00 | [place] | | | | | SQ | | Medical | | | | | M.PREDICTED | | Center | | | | + + + +--------+ + + | EGFR | 2024-12-28 | [place] | 24 | mmol/l | (missing) | | ML/MIN/1.73 | 04:00 | [place] | | | | | SQ | | Medical | | | | | M.PREDICTED | | Center | | | | + + + +--------+ + + | EGFR | 2024-12-28 | [place] | 3.9 | mmol/l | (missing) | | ML/MIN/1.73 | 04:00 | [facility] [place] | | | | | SQ | | Medical | | | | | M.PREDICTED | | Center | | | | + + + +--------+ + + | EGFR | 2024-12-28 | [place] | 31.7 | (missing) | (missing) | | ML/MIN/1.73 | 04:00 | [facility] [place] | | | | | SQ | | Medical | | | | | M.PREDICTED | | Center | | | | + + + +--------+ + + | EGFR | 2024-12-28 | [place] | 9 | mmol/l | (missing) | | ML/MIN/1.73 | 04:00 | [facility] [place] | | | | | SQ | | Medical | | | | | M.PREDICTED | | Center | | | | + + + +--------+ + + | EGFR | 2024-12-28 | [place] | 9.2 | mg/dl | (missing) | | ML/MIN/1.73 | 04:00 | [place] | | | | | SQ | | Medical | | | | | M.PREDICTED | | Center | | | | + + + +--------+ + + | EGFR | 2024-12-28 | [facility] | 99 | | GFR value | | ML/MIN/1.73 | 04:00 | [place] | | ml/min/1.73m | was | | SQ | | Medical | | 2 | calculated | | M.PREDICTED | | Center | | | using a new | | | | | | | GFR equation | | | | | | | effective | | | | | | | since | | | | | | | 05/16/21. | | | | | | | This is a | | | | | | | recommendati | | | | | | | on of the | | | | | | | [place] | | | | | | | Society of | | | | | | | Nephrology | | | | | | | and National | | | | | | | Kidney | | | | | | | Foundation. | | | | | | | Clinical | | | | | | | practice | | | | | | | guidelines | | | | | | | suggest the | | | | | | | use of serum | | | | | | | cystatin C | | | | | | | as a | | | | | | | confirmatory | | | | | | | test for | | | | | | | eGFR 45-59 | | | | | | | ml/min/1.73m | | | | | | | 2 in adults | | | | | | | who do not | | | | | | | have markers | | | | | | | of kidney | | | | | | | disease; | | | | | | | eGFR may be | | | | | | | less | | | | | | | accurate in | | | | | | | this range. | + + + +--------+ + + + + | Result panel 19 | + + + + + +--------+ + + | EGFR | 2024-12-29 | [place] | 0.65 | mg/dl | (missing) | | ML/MIN/1.73 | 04:00 | [place] | | | | | SQ | | Medical | | | | | M.PREDICTED | | Center | | | | + + + +--------+ + + | EGFR | 2024-12-29 | [place] | 11 | mmol/l | (missing) | | ML/MIN/1.73 | 04:00 | [place] | | | | | SQ | | Medical | | | | | M.PREDICTED | | Center | | | | + + + +--------+ + + | EGFR | 2024-12-29 | [place] | 133 | mmol/l | (missing) | | ML/MIN/1.73 | 04: | [facility] [place] | | | | | SQ | | Medical | | | | | M.PREDICTED | | Center | | | | + + + +--------+ + + | EGFR | 2024-12-29 | [place] | 18 | mg/dl | (missing) | | ML/MIN/1.73 | 04:00 | [facility] [place] | | | | | SQ | | Medical | | | | | M.PREDICTED | | Center | | | | + + + +--------+ + + | | 2024-12-29 | [place] | 2.2 | mg/dl | (missing) | | MAGNESIUM.SE | 04:00 | [facility] | | | | | R/PLAS.QN | | Medical | | | | | (MG/DL) | | Center | | | | + + + +--------+ + + | EGFR | 2024-12-29 | [place] | 23 | mmol/l | (missing) | | ML/MIN/1.73 | 04:00 | [facility] [place] | | | | | SQ | | Medical | | | | | M.PREDICTED | | Center | | | | + + + +--------+ + + | EGFR | 2024-12-29 | [place] | 27.7 | (missing) | (missing) | | ML/MIN/1.73 | 04:00 | [facility] | | | | | SQ | | Medical | | | | | M.PREDICTED | | Center | | | | + + + +--------+ + + | EGFR | 2024-12-29 | [place] | 4.1 | mmol/l | (missing) | | ML/MIN/1.73 | 04:00 | [facility] | | | | | SQ | | Medical | | | | | M.PREDICTED | | Center | | | | + + + +--------+ + + | EGFR | 2024-12-29 | [place] | 9.5 | mg/dl | (missing) | | ML/MIN/1.73 | 04:00 | [facility] | | | | | SQ | | Medical | | | | | M.PREDICTED | | Center | | | | + + + +--------+ + + | EGFR | 2024-12-29 | [place] | 94 | mg/dl | Diagnostic | | ML/MIN/1.73 | 04:00 | [facility] | | | Categories | | SQ | | Medical | | | (per ADA): | | M.PREDICTED | | Center | | | Fasting: < | | | | | | | 100 mg/dL = | | | | | | | Normal 100 | | | | | | | to 125 mg/dL | | | | | | | = IFG | | | | | | | (Impaired | | | | | | | Fasting | | | | | | | Glucose) >/= | | | | | | | 126 mg/dL = | | | | | | | Diagnosis | | | | | | | of | | | | | | | Diabetes.* 2 | | | | | | | Hr OGTT: < | | | | | | | 140 mg/dL = | | | | | | | Normal 140 | | | | | | | to 199 mg/dL | | | | | | | = IGT | | | | | | | (Impaired | | | | | | | Glucose | | | | | | | Tolerance) | | | | | | | >/= 200 | | | | | | | mg/dL = | | | | | | | Diagnosis of | | | | | | | Diabetes.* | | | | | | | * In the | | | | | | | absence of | | | | | | | unequivocal | | | | | | | hyperglycemi | | | | | | | a, results | | | | | | | should be | | | | | | | confirmed by | | | | | | | repeat | | | | | | | testing. In | | | | | | | Pediatric | | | | | | | patients, | | | | | | | type 1 | | | | | | | diabetes is | | | | | | | more common | | | | | | | and may | | | | | | | warrant more | | | | | | | immediate | | | | | | | attention. | + + + +--------+ + + | EGFR | 2024-12-29 | [place] | 98 | | GFR value | | ML/MIN/1.73 | 04:00 | [facility] [place] | | ml/min/1.73m | was | | SQ | | Medical | | 2 | calculated | | M.PREDICTED | | Center | | | using a new | | | | | | | GFR equation | | | | | | | effective | | | | | | | since | | | | | | | 05/16/21. | | | | | | | This is a | | | | | | | recommendati | | | | | | | on of the | | | | | | | [place] | | | | | | | Society of | | | | | | | Nephrology | | | | | | | and National | | | | | | | Kidney | | | | | | | Foundation. | | | | | | | Clinical | | | | | | | practice | | | | | | | guidelines | | | | | | | suggest the | | | | | | | use of serum | | | | | | | cystatin C | | | | | | | as a | | | | | | | confirmatory | | | | | | | test for | | | | | | | eGFR 45-59 | | | | | | | ml/min/1.73m | | | | | | | 2 in adults | | | | | | | who do not | | | | | | | have markers | | | | | | | of kidney | | | | | | | disease; | | | | | | | eGFR may be | | | | | | | less | | | | | | | accurate in | | | | | | | this range. | + + + +--------+ + + | EGFR | 2024-12-29 | [place] | 99 | mmol/l | (missing) | | ML/MIN/1.73 | 04:00 | [facility] [place] | | | | | SQ | | Medical | | | | | M.PREDICTED | | Center | | | | + + + +--------+ + + + + | Result panel 20 | + + + + + +--------+ + + | | 2024-12-30 | [place] | 0.0 | per 100 | (missing) | | NRBC.BLD.QN. | 11:13 | [facility] | | [facility] | | | AUTO (K/UL) | | Medical | | | | | | | Center | | | | + + + +--------+ + + | | 2024-12-30 | [place] | 0.00 | k/ul | (missing) | | NRBC.BLD.QN. | 11:13 | [facility] | | | | | AUTO (K/UL) | | Medical | | | | | | | Center | | | | + + + +--------+ + + | | 2024-12-30 | [place] | 0.08 | k/ul | (missing) | | NRBC.BLD.QN. | 11:13 | [facility] | | | | | AUTO (K/UL) | | Medical | | | | | | | Center | | | | + + + +--------+ + + | | 2024-12-30 | [place] | 0.11 | k/ul | (missing) | | NRBC.BLD.QN. | 11:13 | [facility] | | | | | AUTO (K/UL) | | Medical | | | | | | | Center | | | | + + + +--------+ + + | | 2024-12-30 | [place] | 0.20 | k/ul | (missing) | | NRBC.BLD.QN. | 11:13 | [facility] | | | | | AUTO (K/UL) | | Medical | | | | | | | Center | | | | + + + +--------+ + + | | 2024-12-30 | [place] | 0.64 | k/ul | (missing) | | NRBC.BLD.QN. | 11:13 | [facility] | | | | | AUTO (K/UL) | | Medical | | | | | | | Center | | | | + + + +--------+ + + | | 2024-12-30 | [place] | 0.98 | k/ul | (missing) | | NRBC.BLD.QN. | 11:13 | [facility] | | | | | AUTO (K/UL) | | Medical | | | | | | | Center | | | | + + + +--------+ + + | | 2024-12-30 | [place] | 1.0 | % | (missing) | | NRBC.BLD.QN. | 11:13 | [facility] | | | | | AUTO (K/UL) | | Medical | | | | | | | Center | | | | + + + +--------+ + + | | 2024-12-30 | [place] | 1.4 | % | (missing) | | NRBC.BLD.QN. | 11:13 | [facility] | | | | | AUTO (K/UL) | | Medical | | | | | | | Center | | | | + + + +--------+ + + | | 2024-12-30 | [place] | 12.7 | % | (missing) | | NRBC.BLD.QN. | 11:13 | [facility] | | | | | AUTO (K/UL) | | Medical | | | | | | | Center | | | | + + + +--------+ + + | | 2024-12-30 | [place] | 13.2 | g/dl | (missing) | | NRBC.BLD.QN. | 11:13 | [facility] | | | | | AUTO (K/UL) | | Medical | | | | | | | Center | | | | + + + +--------+ + + | | 2024-12-30 | [place] | 13.5 | % | (missing) | | NRBC.BLD.QN. | 11:13 | [facility] | | | | | AUTO (K/UL) | | Medical | | | | | | | Center | | | | + + + +--------+ + + | | 2024-12-30 | [place] | 2.6 | % | (missing) | | NRBC.BLD.QN. | 11:13 | [facility] | | | | | AUTO (K/UL) | | Medical | | | | | | | Center | | | | + + + +--------+ + + | | 2024-12-30 | [place] | 28.5 | pg | (missing) | | NRBC.BLD.QN. | 11:13 | [facility] | | | | | AUTO (K/UL) | | Medical | | | | | | | Center | | | | + + + +--------+ + + | | 2024-12-30 | [place] | 33.2 | g/dl | (missing) | | NRBC.BLD.QN. | 11:13 | [facility] | | | | | AUTO (K/UL) | | Medical | | | | | | | Center | | | | + + + +--------+ + + | | 2024-12-30 | [place] | 371 | k/ul | (missing) | | NRBC.BLD.QN. | 11:13 | [facility] | | | | | AUTO (K/UL) | | Medical | | | | | | | Center | | | | + + + +--------+ + + | | 2024-12-30 | [place] | 39.7 | % | (missing) | | NRBC.BLD.QN. | 11:13 | [facility] | | | | | AUTO (K/UL) | | Medical | | | | | | | Center | | | | + + + +--------+ + + | | 2024-12-30 | [place] | 4.63 | m/ul | (missing) | | NRBC.BLD.QN. | 11:13 | [facility] | | | | | AUTO (K/UL) | | Medical | | | | | | | Center | | | | + + + +--------+ + + | | 2024-12-30 | [place] | 41.1 | fl | (missing) | | NRBC.BLD.QN. | 11:13 | [facility] | | | | | AUTO (K/UL) | | Medical | | | | | | | Center | | | | + + + +--------+ + + | | 2024-12-30 | [place] | 5.71 | k/ul | (missing) | | NRBC.BLD.QN. | 11:13 | [facility] | | | | | AUTO (K/UL) | | Medical | | | | | | | Center | | | | + + + +--------+ + + | | 2024-12-30 | [place] | 7.72 | k/ul | (missing) | | NRBC.BLD.QN. | 11:13 | [facility] | | | | | AUTO (K/UL) | | Medical | | | | | | | Center | | | | + + + +--------+ + + | | 2024-12-30 | [place] | 74.0 | % | (missing) | | NRBC.BLD.QN. | 11:13 | [facility] | | | | | AUTO (K/UL) | | Medical | | | | | | | Center | | | | + + + +--------+ + + | | 2024-12-30 | [place] | 8.3 | % | (missing) | | NRBC.BLD.QN. | 11:13 | [facility] | | | | | AUTO (K/UL) | | Medical | | | | | | | Center | | | | + + + +--------+ + + | | 2024-12-30 | [place] | 85.7 | fl | (missing) | | NRBC.BLD.QN. | 11:13 | [facility] | | | | | AUTO (K/UL) | | Medical | | | | | | | Center | | | | + + + +--------+ + + | | 2024-12-30 | [place] | 9.1 | fl | (missing) | | NRBC.BLD.QN. | 11:13 | [facility] | | | | | AUTO (K/UL) | | Medical | | | | | | | Center | | | | + + + +--------+ + + Social History +--------+ + + | date | description | facility | +--------+ + + Vital Signs No information."
[~2025-01-31 11:46] MED LIST changes: +CEPHALEXIN500 M1 PO
--- OUTSIDE RECORDS SUMMARY | 2025-01-31 11:50 | XMS ---
PreManage Notification: JOHN VARELA Security Customer Development Representative Events No recent Security Events currently on file CRITERIA MET - [facility] - 2 Visits in 30 Days CARE PROVIDERS LÁZARO FIGUEROA Nurse Practitioner: [facility] PHONE: [phone] EHSAN GALARZA Physician Construction Safety Consultant Susan HARDEN PHONE: [phone] MARIANNE ZAYAS Nurse Practitioner: [facility] PHONE: [phone] Adali has no Care Guidelines for this patient. E.D. VISIT COUNT (12 MO.) 2 [facility] TOTAL 3 NOTE: Visits indicate total known visits. ED/UCC VISIT TRACKING (12 MO.) 01/31/2025 11:46 [facility] [place] TYPE: Emergency COMPLAINT: - ABNORMAL LAB RESULT 01/26/2025 15:04 [facility] [place] TYPE: Emergency COMPLAINT: - URINE PROBLEM DIAGNOSES: - Essential (primary) hypertension - Hematuria, unspecified - Hesitancy of micturition - half-way (current) use of anticoagulants - superintendent terminal (current) use of aspirin - Old myocardial infarction - Other halfway (current) drug therapy - Presence of coronary angioplasty implant and graft - Pure hypercholesterolemia, unspecified - Unspecified atrial fibrillation - Urinary tract infection, site not specified [facility] [place] DIAGNOSES: - Acute cystitis without hematuria - Encephalopathy, unspecified - Hypokalemia - Hypomagnesemia - Sepsis, unspecified organism - Severe sepsis with septic shock - Unspecified atrial fibrillation - Altered Mental Status INPATIENT VISIT TRACKING (12 MO.) [facility] [place] DIAGNOSES: - Acute cystitis without hematuria - Bacteremia - Encephalopathy, unspecified - Hypokalemia - Hypomagnesemia - Ischemic cardiomyopathy - Pseudomonas (aeruginosa) (mallei) (pseudomallei) as the cause of diseases classified elsewhere - Sepsis, unspecified organism - Severe sepsis with septic shock - Unspecified atrial fibrillation - Urinary tract infection, site not specified - Ventricular tachycardia, unspecified 12/10/2024 12:27 [facility] [place] TYPE: Surgery DIAGNOSES: - Atherosclerotic heart disease of tribe coronary artery without angina pectoris - Chronic combined systolic (congestive) and diastolic (congestive) heart failure - Chronic kidney disease, stage 3a - Deficiency of other specified B group vitamins - History of falling - Ischemic cardiomyopathy - Other reduced mobility - Paroxysmal atrial fibrillation - Presence of automatic (implantable) cardiac defibrillator - Unilateral primary osteoarthritis, left hip - Unilateral primary osteoarthritis, left knee - Unilateral primary osteoarthritis, right knee - Ventricular tachycardia, unspecified [email or web address]
[2025-01-31] MEDS ORDERED: POTASSIUM CHLO20 ME2 PO (12:17)
[2025-01-31] MEDS ORDERED: CEPHALEXIN500 MG PO (12:17)
[2025-01-31 12:21] LABS: BASOPHILS 0.7 % (0.2-1.2); EOSINOPHILS 2.2 % (0.8-7.0); LYMPHOCYTES 14.2 % (21.8-53.1); MCH 28.2 PG (25.7-32.2); MCHC 32.0 g/dL (32.3-36.5); MCV 88.3 fL (79.0-92.2); MONOCYTES 9.3 % (5.3-12.2); NEUTROPHILS 72.8 % (34.0-67.9); RBC 4.96 M/uL (4.63-6.08)
[2025-01-31 12:38] LABS: INR 1.52 (0.80-1.30); PROTIME 17.4 Sec (11.2-14.2)
[2025-01-31 12:39] LABS: ALT (SGPT) 25.0 U/L (14-59); AST (SGOT) 19.0 U/L (15-37); GLOMERULAR FILTRATION RATE,EST 98.0 mL/min (>60); PROTEIN, TOTAL 7.8 g/dL (6.4-8.2); UREA NITROGEN 12.0 mg/dL (7-18)
[2025-01-31 12:42] LABS: LACTIC ACID, BLOOD 1.1 mmol/L (0.4-2.0)
[2025-01-31 12:43] LABS: BLOOD/HGB, URINE MODERATE (Negative); KETONE, URINE NEGATIVE (Negative); LEUK ESTERASE, URINE SMALL (negative); NITRITE, URINE NEGATIVE (negative)
[2025-01-31 12:54] LABS: BACTERIA, URINE RARE /hpf (negative); CASTS, URINE NONE SEEN \\lpf; CRYSTALS, URINE NONE SEEN (0-1+); EPITHELIAL CELLS, URINE SQUAMOUS 3+ /lpf (0-1+); REFLEX CULTURE, URINE No (No)
[2025-01-31] MEDS ORDERED: CEFEPIME HCL 2 GM in SODIUM CHLORIDE 0.9% 100 ML IV ONE (13:15)
[2025-01-31 14:03] VITALS: BP 125/65
== END 2025-01-31 14:50 | disposition short-term general hospital (02) ==
LOC: ED 11:46
PROVIDERS: Emergency Medicine
DX: R78.81 Bacteremia (principal); B96.5 Pseudomonas (aeruginosa) (mallei) (pseudomallei) as the cause of diseases classified elsewhere; I10 Essential (primary) hypertension; I25.2 Old myocardial infarction; E78.00 Pure hypercholesterolemia, unspecified; Z95.9 Presence of cardiac and vascular implant and graft, unspecified; Z96.652 Presence of left artificial knee joint; Z95.5 Presence of coronary angioplasty implant and graft; Z79.2 Long term (current) use of antibiotics; Z79.82 Long term (current) use of aspirin; Z79.01 Long term (current) use of anticoagulants; Z79.899 Other long term (current) drug therapy
CPT/HCPCS: 36415; 80053; 81001; 83605; 85025; 85610; 85730; 96365; 96366; 99284-25; J0692